=== PATIENT | male | born 1950 | race Asian ===

== ENCOUNTER 2020-10-01 08:49 | Outpatient (REF) | payer SELFPAY | END 2020-10-01 08:50 | disposition home or self-care (01) | LOC: HO.SCI 08:49 | PROVIDERS: Visit Provider Psychiatry & Neurology Neurology | DX: Z13.89 Encounter for screening for other disorder (principal) ==

== ENCOUNTER → 2020-10-02 15:11 | Outpatient (REF) | payer SELFPAY ==
--- NOTE | 2020-10-02 15:16 | HM_ITS ---
Basic underlying rhythm is sinus rhythm with average heart rate of 69 beats per minute. No significant sinus pauses noted. There frequent 2:1 AV block with no change in QRS morphology. It is not clearly preceded by any fall more of Wenckebach phenomenon. Unclear whether this represents type 1 or type 2 second-degree AV block. There were no symptoms reported at that time. Most of these episodes happen between 8 and10 pm. No other arrhythmias noted. No patient reported symptoms MTDD
== END ==
LOC: HO.CARD 15:11
PROVIDERS: Visit Provider Psychiatry & Neurology Neurology
DX: R00.1 Bradycardia, unspecified (principal); R42 Dizziness and giddiness
CPT/HCPCS: 93225; 93242

== ENCOUNTER → 2020-12-04 10:59 | Outpatient (BNVA) | payer SELFPAY | PROVIDERS: PCP Psychiatry & Neurology Neurology; Visit Provider Internal Medicine Cardiovascular Disease | DX: I44.1 Atrioventricular block, second degree (principal); I10 Essential (primary) hypertension | CPT/HCPCS: 99202 ==

== ENCOUNTER → 2020-12-17 08:07 | Outpatient (REF) | payer MEDICARE, SELFPAY ==
--- NOTE | 2020-12-17 08:14 | CA_ITS ---
Acquisition Time: 2020-12-17 08:15:29 Total Exercise Time: 00:01:07 Test Indications: Abnormal ECG Medications: Protocol: LUIS Max HR: 048 BPM 32% of Pred: 148 BPM Max BP: 180/070 mmHG Max Work Load: 2.9 METS Exercise stress test with exercise 1 min 7 sec of Luis protocol, with mild sob, mild dizziness, no chest discomfort, with asymptomatic 2:1 heart block pulse 30s at baseline then becomes symptomatic second degree type 2 with 3:1 conduction with walking rate up to 44, with normotensive BP once sitting back in chair, with nondiagnostic EKG for ischemia. IV access in place during test. EKGs reviewed with Dr Sultana. Will send to ED for admission, evaluation and plan for PPM placement. Pt fully informed of plan and agreeable to proceed. Son present. Transported to ED with RN and Tech, via stretcher, with portable monitor in use. Referred By: Amadou Sultana Overread By: NATA SARABIA
== END ==
LOC: HO.CARD 08:07
PROVIDERS: PCP Internal Medicine; Visit Provider Internal Medicine Cardiovascular Disease
DX: Z13.89 Encounter for screening for other disorder (principal)
CPT/HCPCS: 93017

== ENCOUNTER 2020-12-17 09:59 | Inpatient (IN) | payer MEDICARE, SELFPAY ==
[2020-12-17] VITALS (12 sets, daily range): BP systolic 128–166; BP diastolic 50–80; PULSE 36–73; RESP 12–23; TEMP 36.6–36.8; O2SAT 95–100; BMI 24.6; BMI 21.5
--- NOTE | ~2020-12-17 | XR_ITS ---
EXAMINATION: XR CHEST CLINICAL INFORMATION: Shortness of breath. Rule out pneumonia. COMPARISON: None TECHNIQUE: Frontal view of the chest was obtained. FINDINGS: The cardiac and mediastinal contours are normal. The lungs are clear. There is no pleural effusion or pneumothorax. There are degenerative changes of the spine. XR/XR chest 1V IMPRESSION: No evidence for acute disease in the chest.
--- NOTE | ~2020-12-17 | XR_ITS ---
EXAMINATION: XR CHEST CLINICAL INFORMATION: New pacemaker COMPARISON: Chest radiograph earlier this morning TECHNIQUE: Frontal view of the chest was obtained. FINDINGS: Since the prior exam, a left chest wall subclavian pacemaker has been placed with one lead in the right atria and the other in the right ventricle. No pneumothorax is seen. The heart and pulmonary vessels appear normal. XR/XR chest 1V IMPRESSION: Uneventful placement of left sided bipolar pacemaker without complication.
--- NOTE | ~2020-12-17 | FL_ITS ---
EXAMINATION: XR FL GUIDANCE IN OR WITH IMAGES CLINICAL INFORMATION: Pacemaker placement. COMPARISON: None TECHNIQUE: Fluoroscopy performed by Dr. Betina Alas. Fluoroscopy Time: 410.37 seconds. DAP: 73.49 mGy. Images: 290. FINDINGS: Fluoroscopic guidance provided. Imaging shows injection of contrast with opacification of the cephalic and axillary veins. There is poor opacification of the subclavian vein. No imaging demonstrates a pacemaker. FL/FL guidance in OR IMPRESSION: Fluoroscopy and imaging provided during procedure.
--- NOTE | ~2020-12-17 | XR_ITS ---
EXAMINATION: XR CHEST CLINICAL INFORMATION: Follow-up pacemaker. COMPARISON: Chest radiograph done on 12/17/2020. TECHNIQUE: Frontal view of the chest was obtained. FINDINGS: Dual lead left subclavian left pectoral pacemaker is identified with intact hardware. The tip of the leads are projecting in the region of the right ventricle and right atrium. No significant change since prior study. No evidence of any left-sided pneumothorax. Both lung hu are clear. The cardiac mediastinal silhouette is within normal limit. Overall, no significant change. XR/XR chest 1V IMPRESSION: Stable radiographic appearance of the left subclavian/left pectoral dual-lead pacemaker device.
--- NOTE | 2020-12-17 10:22 | ECG_ITS ---
Test Reason : Dyspnea, bradycardia Blood Pressure : / mmHG Vent. Rate : 037 BPM Atrial Rate : 037 BPM P-R Int : 206 ms QRS Dur : 128 ms QT Int : 512 ms P-R-T Axes : 070 -27 055 degrees QTc Int : 401 ms Junctional bradycardia with A-V dissociation AV Block Right bundle branch block Abnormal ECG No previous ECGs available Clinical Correlation Advised Referred By: Luis Carlos Allan Electronically Signed By:DIOR WORKMAN MD
--- NOTE | 2020-12-17 10:24 | ED_ITS ---
HPI - SOB/Dyspnea General Chief Complaint: Arrhythmia/Palpitations Stated Complaint: Heart Block Time Seen by Provider: 12/17/20 10:02 Source: patient and family (Son, Fatuma) Mode of arrival: ambulatory Limitations: no limitations History of Present Illness HPI Narrative: 70-year-old male who was getting a exercise treadmill test and was found to be bradycardic and dyspneic therefore he was referred to the [facility] department for evaluation. The patient was evaluated by our mount loader, Dr. Sultana on 12/04/2020 for intermittent second-degree AV block noted on a Holter monitor. The patient was asymptomatic at that time and the patient had notice that his pulse was low on his oxygen saturation monitor. The patient reported that his systolic blood pressures ranging from 140-170. After this visit, Dr Sultana schedule the patient for an echocardiogram and stress test that was done today. The patient states however that over the past 3 days he has noticed shortness of breath especially with exertion lightheadedness and dizziness with exertion as well. He states that walking up stairs made him very lightheaded he felt as if he was going to pass out. He also states that he noted a decrease in his heart rate over the past 3 days. He states that his heart rate which was 50-60 beats per minute were now l lower ranging from 35-37 beats per minute. He denied any chest pain, neck pain, arm pain or back pain associated with exertion. The patient had a stress test today and apparently his heart rate would not go above 50, after minimal exertion he did feel short of breath and lightheaded, t herefore he was sent to emergency department for evaluation Related Data Home Medications Medication Instructions Recorded Confirmed No Known Home Meds 12/04/20 12/04/20 Allergies Allergy/AdvReac Type Severity Reaction Status Date / Time No Known Allergies Allergy Verified 12/04/20 11:12 Review of Systems Review of Systems: Yes all other systems are reviewed and are negative PMFSH Past Medical History Medical History HTN (hypertension) Second degree AV block Surgical History Hx of eye surgery Hx of prostatectomy Family History Family History Father No problems noted. Mother Diabetes Social History Social History Patient Tobacco Use Status: Never used Tobacco Use of substances other than those prescribed or required for medical reasons: No Advance Directives: No Advance Directives Information Provided: No Physical Exam Vital Signs: Vital Signs: Last Vital Signs Temp 98.2 F 12/17/20 10:01 Pulse 38 L 12/17/20 10:18 Resp 16 12/17/20 10:18 BP 155/54 H 12/17/20 10:18 Pulse Ox 100 12/17/20 10:18 Body Mass Index 21.5 Const: Other: Very pleasant and cooperative male patient, he does not appear to be in distress, he answers all questions appropriately. HENMT: Head: Yes normal to inspection, Yes normocephalic and Yes atraumatic Ears: external ears normal General nose exam: Normal external nose present Face and sinus: Yes normal facial exam Mouth: Normal oral and palatal mucosa present Throat: Yes posterior oropharynx normal Eyes: General: appearance normal, both eyes and all related structures Pupils: Equal, round and reactive pupils present Neck: Neck: Yes normal visual inspection, Yes no lymphadenopathy, Yes trachea midline and Yes supple Chest: Chest palpation & inspection: normal inspection of the chest and normal palpation of entire chest wall Resp: Effort & Inspection: normal respiratory effort and able to speak in complete sentences Auscultation: clear to auscultation bilaterally Cardio: Rate: bradycardic Rhythm: regular rhythm Heart sounds: S1 normal heart sound present, S2 normal heart sound present and no murmurs GI: Inspection: Yes normal to inspection Palpation (GI): Soft to palpation, nontender and no guarding Auscultation: normal bowel sounds : General: Yes no CVA tenderness Back/Spine/Pelvis: Back: no CVA tenderness Skin: General skin exam: no rashes or lesions noted Neuro: Cranial nerves: Yes CN's II-XII intact bilaterally and Yes Equal, round and reactive pupils present Cognition (Neuro): normal cognition Motor exam (neuro): 5/5 motor strength present throughout Extrem: General: Yes normal to inspection Psych: Appearance: grossly normal Speech and movement: Normal speech and movement present Affect: normal affect Attitude: cooperative Thought process: Normal thought process present Thought content: Normal thought content present Course Course Course Narrative: 70-year-old male with a history of hypertension who was recently diagnosed with intermittent first-degree AV block who over the past 3 days has developed dyspnea on exertion, lightheadedness and dizziness with exertion without any chest pain, neck pain, jaw pain or back pain. He had an exercise treadmill test today and with minimal exertion he developed dyspnea and was not able to get his heart rate above 50 therefore he is referred to the emergency department. Patient denied experiencing chest pain, neck pain jaw pain or back pain during the last 3 days or during the exercise treadmill test. Here in the emergency department the patient has no complaints. Patient was found to be bradycardic with a pulse of 37. His 12 EKG revealed a second-degree AV block with 2-1 conduction and bradycardia with a rate of 37, MD interval of 206 milliseconds, prolonged QRS of 118 milliseconds with a right bundle karen block as well. The patient was placed on a cardiac catheterization technician. I did order CBC, CMP, TSH with reflex T4, troponin BNP, PT/INR, PTT and COVID-19 test. I will also get a one view chest x-ray to rule out CHF or pneumonia as the cause of his dyspnea. 1101: The patient was evaluated by our intensive/endoscopy tech, Dr. Alas did a bedside echocardiogram on the patient. Dr. Alas plans on taking the patient to the operating room to place a pacemaker today at 1:00 p.m. 1216: Laboratory evaluation: High sensitivity troponin I was detectable at 3.8 but not elevated. TSH was normal. BNP was slightly elevated 172. Chest x-ray was unremarkable. MDM - SOB/Dyspnea Lab Data Result diagrams: 12/17/20 10:34 12/17/20 10:34 Labs: Lab Results 12/17/20 12/17/20 12/17/20 Range/Units 10:34 10:34 10:34 WBC 11.8 H (4.8-10.8) X10*3/uL RBC 4.86 (4.60-5.80) X10*6/uL Hgb 14.4 (14.0-18.0) g/dl Hct 43.3 (42.0-52.0) % MCV 89.1 (80.0-98.0) fL MCH 29.6 (27.0-33.0) pg MCHC 33.3 (31.0-36.0) g/dl RDW 12.3 (11.0-16.0) % Plt Count 272 (160-400) X10*3/uL MPV 9.9 (9.4-12.4) fL Immature Gran % (Auto) 0.3 (0.0-0.4) % Neut % (Auto) 61.1 (45-73) % Lymph % (Auto) 28.3 (20-40) % Norton % (Auto) 7.7 (2-11) % Eos % (Auto) 2.4 (0-4) % Baso % (Auto) 0.2 (0-2) % Lymph # (Auto) 3.3 (1.2-4.9) X10*3/uL Norton # (Auto) 0.9 (0.1-1.2) X10*3/uL Eos # (Auto) 0.3 (0.0-0.4) X10*3/uL Baso # (Auto) 0.0 (0.0-0.2) X10*3/uL Abs Immat Gran (auto) 0.04 H (0.00-0.03) X10*3/uL Absolute Neuts (auto) 7.21 (2.0-8.3) x10*3/uL Absolute Nucleated RBC 0.000 (0.0-0.012) X10*3/uL Nucleated RBC % (auto) 0.0 (0.0-0.2) /100WBC PT 12.1 (9.9-13.0) SEC INR 1.1 (0.9-1.1) APTT 36.7 (24.1-38.0) SEC Sodium 138 (135-145) mmol/L Potassium 4.9 (3.3-5.1) mmol/L Chloride 106 (96-108) mmol/L Carbon Dioxide 26 (22-29) mmol/L Anion Gap 11 L (12-20) BUN 15 (9-16) mg/dL Creatinine 0.88 (0.5-1.4) mg/dL Estim Creat Clear Calc 73.0 Estimated GFR > 60 Random Glucose 95 (60-115) mg/dL Calcium 9.1 (8.4-10.2) mg/dL Total Bilirubin 1.0 (0.0-1.0) mg/dL AST 24 (5-37) U/L ALT 27 (0-40) U/L Alkaline Phosphatase 73 (39-117) U/L Troponin I High Sens (<3.5-35.0) ng/L B-Natriuretic Peptide (<100) pg/mL Total Protein 6.4 L (6.5-8.0) g/dL Albumin 3.9 (3.5-5.0) g/dL TSH 3.09 (0.32-4.0) uIU/mL COVID-19 (DEMETRIS) (Negative) COVID-19 Clin Com 12/17/20 12/17/20 Range/Units 10:34 10:34 WBC (4.8-10.8) X10*3/uL RBC (4.60-5.80) X10*6/uL Hgb (14.0-18.0) g/dl Hct (42.0-52.0) % MCV (80.0-98.0) fL MCH (27.0-33.0) pg MCHC (31.0-36.0) g/dl RDW (11.0-16.0) % Plt Count (160-400) X10*3/uL MPV (9.4-12.4) fL Immature Gran % (Auto) (0.0-0.4) % Neut % (Auto) (45-73) % Lymph % (Auto) (20-40) % Norton % (Auto) (2-11) % Eos % (Auto) (0-4) % Baso % (Auto) (0-2) % Lymph # (Auto) (1.2-4.9) X10*3/uL Norton # (Auto) (0.1-1.2) X10*3/uL Eos # (Auto) (0.0-0.4) X10*3/uL Baso # (Auto) (0.0-0.2) X10*3/uL Abs Immat Gran (auto) (0.00-0.03) X10*3/uL Absolute Neuts (auto) (2.0-8.3) x10*3/uL Absolute Nucleated RBC (0.0-0.012) X10*3/uL Nucleated RBC % (auto) (0.0-0.2) /100WBC PT (9.9-13.0) SEC INR (0.9-1.1) APTT (24.1-38.0) SEC Sodium (135-145) mmol/L Potassium (3.3-5.1) mmol/L Chloride (96-108) mmol/L Carbon Dioxide (22-29) mmol/L Anion Gap (12-20) BUN (9-16) mg/dL Creatinine (0.5-1.4) mg/dL Estim Creat Clear Calc Estimated GFR Random Glucose (60-115) mg/dL Calcium (8.4-10.2) mg/dL Total Bilirubin (0.0-1.0) mg/dL AST (5-37) U/L ALT (0-40) U/L Alkaline Phosphatase (39-117) U/L Troponin I High Sens 3.8 (<3.5-35.0) ng/L B-Natriuretic Peptide 172 H (<100) pg/mL Total Protein (6.5-8.0) g/dL Albumin (3.5-5.0) g/dL TSH (0.32-4.0) uIU/mL COVID-19 (DEMETRIS) Negative (Negative) COVID-19 Clin Com See Note ECG Data Interpretation: 1037: Second-degree AV block to 2-1 conduction with bradycardia with a rate of 37, prolonged MD interval of 206, prolonged QRS duration of 128 milliseconds, normal QTC of 401 milliseconds, no ST segment elevation, no ST segment depression, no PACs, no PVCs, right bundle-branch block. Critical Care Time Critical Care Time Critical Care Time: Yes Total Critical Care Time: 35 Attestation: Critical Care: The patient was critically ill with a high probability of imminent or life threatening deterioration. I spent greater than 30 minutes of discontinuous time evaluating the patient,delivering critical care at the bedside, discussing and evaluating pertinent data with consultants. Critical care time does not include time spent performing separately billable p rocedures or teaching. Total time spent performing critical care was 35 minutes. Discharge Plan Discharge Clinical Impression: Second degree AV block, Dyspnea on exertion Patient Disposition: Admitted As Inpatient
[2020-12-17 10:42] LABS: MANUAL DIFF FLAG NO
[2020-12-17 10:48] LABS: Basophils Percent Auto 0.2 % (0-2); Eosinophils Absolute Auto 0.3 X10*3/uL (0.0-0.4); Eosinophils Percent Auto 2.4 % (0-4); Hematocrit 43.3 % (42.0-52.0); Hemoglobin 14.4 g/dl (14.0-18.0); Imm Gran Abs Auto 0.04 X10*3/uL (0.00-0.03); Imm Gran Pct Auto 0.3 % (0.0-0.4); Lymphocytes Absolute Auto 3.3 X10*3/uL (1.2-4.9); Lymphocytes Percent Auto 28.3 % (20-40); Mean Corpuscular HGB Conc 33.3 g/dl (31.0-36.0); Mean Corpuscular Hemoglobin 29.6 pg (27.0-33.0); Mean Corpuscular Volume 89.1 fL (80.0-98.0); Mean Platelet Volume 9.9 fL (9.4-12.4); Monocytes Absolute Auto 0.9 X10*3/uL (0.1-1.2); Monocytes Percent Auto 7.7 % (2-11); Neutrophils Absolute Auto 7.21 x10*3/uL (2.0-8.3); Neutrophils Percent Auto 61.1 % (45-73); Platelet Count 272 X10*3/uL (160-400); Red Blood Count 4.86 X10*6/uL (4.60-5.80); Red Cell Distribution Width 12.3 % (11.0-16.0); White Blood Count 11.8 X10*3/uL (4.8-10.8)
[2020-12-17 11:01] LABS: INTERNATIONAL NORM RATIO 1.1 (0.9-1.1); Prothrombin Time 12.1 SEC (9.9-13.0)
[2020-12-17 11:04] LABS: Partial Thromboplastin Time 36.7 SEC (24.1-38.0)
[2020-12-17 11:06] LABS: COVID-19 Test Negative (Negative)
[2020-12-17 11:08] LABS: Alanine Aminotransferase 27 U/L (0-40); Albumin Level 3.9 g/dL (3.5-5.0); Alkaline Phosphatase 73 U/L (39-117); Anion Gap 11 (12-20); Aspartate Amino Transferase 24 U/L (5-37); B Type Natriuretic Peptide 172 pg/mL (<100); Blood Urea Nitrogen 15 mg/dL (9-16); Calcium 9.1 mg/dL (8.4-10.2); Carbon Dioxide 26 mmol/L (22-29); Chloride 106 mmol/L (96-108); Estimated Glomerular Filt Rate > 60; Glucose Random 95 mg/dL (60-115); Potassium 4.9 mmol/L (3.3-5.1); Sodium 138 mmol/L (135-145); Total Protein 6.4 g/dL (6.5-8.0); Troponin-I High Sensitivity 3.8 ng/L (<3.5-35.0)
[2020-12-17 11:25] LABS: TSH reflex Free T4 3.09 uIU/mL (0.32-4.0)
--- NOTE | 2020-12-17 12:01 | PM.CCHP ---
History of Present Illness Date of Service: 12/17/20 Attending physician on admission: Amadou Sultana Chief Complaint: Weakness and shortness of breath 70-year-old male of with no underlying disease or medication at home doing well until approximately 2 weeks ago and then he started to notice exertional weakness fatigability shortness of breath and almost to the point of near syncope and he was noted to have heart rates that progressively dropped and for 1 week have been approximately 30-32 and today on the treadmill he was noted to be in sinus rhythm 1st degree AV block with 2-1 AV block with fixed conduction and underlying right bundle branch block and left anterior hemiblock so 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 with significant symptomatic bradycardia On the treadmill his sinus rate increased but of course his degree of AV block increased to 3-1 and 4-1 and his ventricular response rate remained at approximately 30 Bedside echocardiogram documented perfectly normal anatomy with globally normal left and right ventricular systolic wall motion and no primary valve or pericardial disease and normal inferior vena caval diameter with normal inspiratory response so he is apparently euvolemic Review of Systems Review of Systems: Yes all other systems are reviewed and are negative [facility] Past Medical History Medical History HTN (hypertension) Second degree AV block Family History Family History Father No problems noted. Mother Diabetes Surgical History Surgical History Hx of eye surgery Hx of prostatectomy Social History Social History Patient Tobacco Use Status: Never used Tobacco Second Hand Smoke Exposure: No Meds Allergies Allergy/AdvReac Type Severity Reaction Status Date / Time No Known Allergies Allergy Verified 12/04/20 11:12 Active Medications: Current Medications Cefazolin Sodium/Dextrose (Ancef) 2 gm in 50 mls @ 100 mls/hr IV PREOP ONE Stop: 12/17/20 12:29 Home Medications Medication Instructions Recorded Confirmed Last Taken Type No Known Home Meds 12/04/20 12/04/20 Unknown History Physical Exam Vital Signs: Vital Signs: Last Vital Signs Temp 98.2 F 12/17/20 10:01 Pulse 38 L 11/02/21 10:18 Resp 16 12/17/20 10:18 BP 155/54 H 12/17/20 10:18 Pulse Ox 100 12/17/20 10:18 Body Mass Index 21.5 Awake alert and oriented x3 and nonfocal neurologically Bedside echo shows normal inferior vena caval diameter with normal inspiratory collapse and normal cardiac anatomy with normal systolic function of both right and left ventricles and no primary valve or pericardial disease Chest was clear with no adventitious sounds Skin is intact Results Labs CBC and Chem 7: 12/17/20 10:34 12/17/20 10:34 Labs: Laboratory Results - last 24 hr 12/17/20 12/17/20 12/17/20 10:34 10:34 10:34 MCV 89.1 MCH 29.6 MCHC 33.3 RDW 12.3 Plt Count 272 MPV 9.9 Immature Gran % (Auto) 0.3 Neut % (Auto) 61.1 Lymph % (Auto) 28.3 [place] % (Auto) 7.7 Eos % (Auto) 2.4 Baso % (Auto) 0.2 Lymph # (Auto) 3.3 [place] # (Auto) 0.9 Eos # (Auto) 0.3 Baso # (Auto) 0.0 Abs Immat Gran (auto) 0.04 H Absolute Neuts (auto) 7.21 Absolute Nucleated RBC 0.000 Nucleated RBC % (auto) 0.0 PT 12.1 INR 1.1 APTT 36.7 Anion Gap 11 L Estim Creat Clear Calc 73.0 Estimated GFR > 60 Random Glucose 95 Calcium 9.1 Total Bilirubin 1.0 AST 24 ALT 27 Alkaline Phosphatase 73 Troponin I High Sens B-Natriuretic Peptide Total Protein 6.4 L Albumin 3.9 TSH 3.09 COVID-19 (DEMETRIS) COVID-19 Clin Com 12/17/20 12/17/20 10:34 10:34 MCV MCH MCHC RDW Plt Count MPV Immature Gran % (Auto) Neut % (Auto) Lymph % (Auto) [place] % (Auto) Eos % (Auto) Baso % (Auto) Lymph # (Auto) [place] # (Auto) Eos # (Auto) Baso # (Auto) Abs Immat Gran (auto) Absolute Neuts (auto) Absolute Nucleated RBC Nucleated RBC % (auto) PT INR APTT Anion Gap Estim Creat Clear Calc Estimated GFR Random Glucose Calcium Total Bilirubin AST ALT Alkaline Phosphatase Troponin I High Sens 3.8 B-Natriuretic Peptide 172 H Total Protein Albumin TSH COVID-19 (DEMETRIS) Negative COVID-19 Clin Com See Note Imaging Radiologist's Impressions: Impressions Chest X-Ray 12/17/20 10:23 IMPRESSION: No evidence for acute disease in the chest. Assessment and Plan (1) Dyspnea on exertion: Status: Acute (2) HTN (hypertension): Status: Acute (3) Second degree AV block: Status: Acute (4) Symptomatic bradycardia: Status: Acute (5) Bifascicular bundle branch block: Status: Acute
--- NOTE | 2020-12-17 12:03 | P.CONCA_ITS ---
History of Present Illness History of Present Illness Date of Service: 12/17/20 Requesting physician: Luis Carlos Allan Chief complaint: Symp bradycardia High grade Trifascicular Block Narrative: Del was here for treadmill stress test for 2 is to 1 av block. However the last week he has noted persistent bradycardia and symptoms of lightheadedness and shortness of breath with exertion. He has no orthopnea, PND. No syncopal episodes. He came in to the stress lab and was noted to be in persistent 2 is to 1 av block with right bundle-branch block. He was then put on the treadmill and had worsening of his AV block consistent with infranodal AV block. He was therefore referred to the emergency room for admission and placement of dual-chamber pacemaker due to unstable AV block condition. We discussed about this situation. His blood pressure is stable. He is not having any other symptoms at this point time. However is very skeptical about needing to undergo pacemaker placement. Dr. Rivas has been consulted and agrees to proceed with dual-chamber pacemaker soon. Review of Systems Constitutional: Constitutional: Reports no additional constitutional complaints Eyes: Eyes: Reports no additional eye complaints Cardiovascular: Cardiovascular: Denies chest pain, Denies leg edema, Reports lightheadedness, Denies Loss of Consciousness, Denies palpitations, Reports dyspnea on exertion, Denies orthopnea and Reports slow heart rate Respiratory: Respiratory: Reports no additional respiratory complaints and Reports dyspnea on exertion Gastrointestinal: Gastrointestinal: Reports no additional gastrointestinal complaints Genitourinary: Genitourinary: Reports no additional male genitourinary complaints Musculoskeletal: Musculoskeletal: Reports no additional musculoskeletal complaints Integumentary/Breasts: Skin/Breast: Reports system reviewed and no additional complaints, except as docu Neurologic: Reports system reviewed and no additional complaints, except as documented Psychiatric: Psychiatric: Reports no additional psychiatric complaints Endocrine: Endocrine: Reports no additional endocrine complaints and Denies p alpitations PMFSH Past Medical History Medical History HTN (hypertension) Second degree AV block Family History Family History Father No problems noted. Mother Diabetes Surgical History Surgical History Hx of eye surgery Hx of prostatectomy Social History Social History Patient Tobacco Use Status: Never used Tobacco Use of substances other than those prescribed or required for medical reasons: No Advance Directives: No Advance Directives Information Provided: No Meds Allergies Allergy/AdvReac Type Severity Reaction Status Date / Time No Known Allergies Allergy Verified 12/04/20 11:12 Active Medications: Current Medications Cefazolin Sodium/Dextrose (Ancef) 2 gm in 50 mls @ 100 mls/hr IV PREOP ONE Stop: 12/17/20 12:29 Home Medications Medication Instructions Recorded Confirmed Last Taken Type No Known Home Meds 12/04/20 12/04/20 Unknown History Physical Exam Vital Signs: Vital Signs: Last Vital Signs Temp 98.2 F 12/17/20 10:01 Pulse 38 L 12/17/20 10:18 Resp 16 12/17/20 10:18 BP 155/54 H 12/17/20 10:18 Pulse Ox 100 12/17/20 10:18 Body Mass Index 21.5 Const: General: cooperative, comfortable, no acute distress, alert and awake Nutritional Appearance: thin Orientation/consciousness: patient oriented x3 Limitations: no limitations HENMT: Head: Yes normocephalic and Yes atraumatic Neck: Neck: Yes trachea midline, Yes supple and Yes no JVD Resp: Effort & Inspection: normal respiratory effort Auscultation: clear to auscultation bilaterally Cardio: Jugular venous distension: no JVD Palpation: normal PMI Rate: regular rate and bradycardic Rhythm: regular rhythm Heart sounds: S1 normal heart sound present, S2 normal heart sound present, no click, no gallops, no murmurs and no rubs GI: Auscultation: normal bowel sounds Skin: General skin exam: no rashes or lesions noted Neuro: General: patient oriented x3 and no focal motor deficits Extrem: General: Yes no clubbing, cyanosis or edema Results Labs and Meds Result diagrams: 12/17/20 10:34 12/17/20 10:34 Lab results: Laboratory Results - last 24 hr 12/17/20 12/17/20 12/17/20 10:34 10:34 10:34 WBC 11.8 H RBC 4.86 Hgb 14.4 Hct 43.3 MCV 89.1 MCH 29.6 MCHC 33.3 RDW 12.3 Plt Count 272 MPV 9.9 Immature Gran % (Auto) 0.3 Neut % (Auto) 61.1 Lymph % (Auto) 28.3 Bennett % (Auto) 7.7 Eos % (Auto) 2.4 Baso % (Auto) 0.2 Lymph # (Auto) 3.3 Bennett # (Auto) 0.9 Eos # (Auto) 0.3 Baso # (Auto) 0.0 Abs Immat Gran (auto) 0.04 H Absolute Neuts (auto) 7.21 Absolute Nucleated RBC 0.000 Nucleated RBC % (auto) 0.0 PT 12.1 INR 1.1 APTT 36.7 Sodium 138 Potassium 4.9 Chloride 106 Carbon Dioxide 26 Anion Gap 11 L BUN 15 Creatinine 0.88 Estim Creat Clear Calc 73.0 Estimated GFR > 60 Random Glucose 95 Calcium 9.1 Total Bilirubin 1.0 AST 24 ALT 27 Alkaline Phosphatase 73 Troponin I High Sens B-Natriuretic Peptide Total Protein 6.4 L Albumin 3.9 TSH 3.09 COVID-19 (DEMETRIS) COVID-19 [place]rin[place] Com 12/17/20 12/17/20 10:34 10:34 WBC RBC Hgb Hct MCV MCH MCHC RDW Plt Count MPV Immature Gran % (Auto) Neut % (Auto) Lymph % (Auto) Bennett % (Auto) Eos % (Auto) Baso % (Auto) Lymph # (Auto) Bennett # (Auto) Eos # (Auto) Baso # (Auto) Abs Immat Gran (auto) Absolute Neuts (auto) Absolute Nucleated RBC Nucleated RBC % (auto) PT INR APTT Sodium Potassium Chloride Carbon Dioxide Anion Gap BUN Creatinine Estim Creat Clear Calc Estimated GFR Random Glucose Calcium Total Bilirubin AST ALT Alkaline Phosphatase Troponin I High Sens 3.8 B-Natriuretic Peptide 172 H Total Protein Albumin TSH COVID-19 (DEMETRIS) Negative COVID-19 Clin Com See Note Imaging Radiologist's impression: Impressions Chest X-Ray 12/17/20 10:23 IMPRESSION: No evidence for acute disease in the chest. Assessment and Plan (1) Second degree AV block: Status: Acute Infranodal second-degree AV block, unstable situation with worsening block with exercise. This needs to be treated with a dual-chamber pacemaker. This was discussed with patient as well as patient's son in detail. Risks, benefits, alternatives and 2nd opinion to procedure for pacemaker placement was discussed with him. He is still hesitant but understands and is agreeable. Schedule for pacemaker placement today and if everything goes well, plan for discharge tomorrow. Unknown cause of his AV aoksua block. This was discussed with him. Will need further workup as we progressed. He will need an echocardiogram as well as ischemic evaluation and if these are negative to pursue with cardiac MRI to evaluate for infiltrative heart disease. Will follow up with him. Procedures Date of Service Date of Service: 12/17/20
--- NOTE | 2020-12-17 13:39 | P.CONAN_ITS ---
HPI - Anesthesia Eval Consult details Narrative: 70 yo male patient for pacemaker insertion PMFSH Active Problems Active Problems: All Active Problems (Updated 12/17/20 @ 11:03 by Luis Carlos Allan MD) Dyspnea on exertion (Acute) HTN (hypertension) (Acute) Second degree AV block (Acute) SOB, dizziness Past Medical History Medical History HTN (hypertension) Second degree AV block Family History Family History Father No problems noted. Mother Diabetes Family history of problems with anesthesia: No Surgical History Surgical History Hx of eye surgery Hx of prostatectomy History of Problems with Anesthesia: No Social History Social History Patient Tobacco Use Status: Never used Tobacco Second Hand Smoke Exposure: No Meds Allergies Allergy/AdvReac Type Severity Reaction Status Date / Time No Known Allergies Allergy Verified 12/04/20 11:12 Active Medications: Current Medications Lactated Ringer's (Lr) 1,000 mls @ 50 mls/hr IVCONT .Q20H [facility] Home Medications Medication Instructions Recorded Confirmed Last Taken Type No Known Home Meds 12/04/20 12/04/20 Unknown History Exam Exam Date and Time: December 17, 2020 1339 Height,Weight and Vital Signs: Height 5 ft 10 in Weight 68.039 kg Last Vital Signs Temp 98.2 F 12/17/20 12:20 Pulse 36 L 12/17/20 12:20 Resp 19 12/17/20 12:20 BP 155/53 H 12/17/20 12:20 Pulse Ox 99 12/17/20 12:20 Pertinent Lab Results Pertinent Lab Results: Laboratory Tests 12/17/20 12/17/20 12/17/20 10:34 10:34 10:34 WBC 11.8 H RBC 4.86 Hgb 14.4 Hct 43.3 MCV 89.1 MCH 29.6 MCHC 33.3 RDW 12.3 Plt Count 272 MPV 9.9 Immature Gran % (Auto) 0.3 Neut % (Auto) 61.1 Lymph % (Auto) 28.3 [place] % (Auto) 7.7 Eos % (Auto) 2.4 Baso % (Auto) 0.2 Lymph # (Auto) 3.3 [place] # (Auto) 0.9 Eos # (Auto) 0.3 Baso # (Auto) 0.0 Abs Immat Gran (auto) 0.04 H Absolute Neuts (auto) 7.21 Absolute Nucleated RBC 0.000 Nucleated RBC % (auto) 0.0 PT 12.1 INR 1.1 APTT 36.7 Sodium 138 Potassium 4.9 Chloride 106 Carbon Dioxide 26 Anion Gap 11 L BUN 15 Creatinine 0.88 Estim Creat Clear Calc 73.0 Estimated GFR > 60 Random Glucose 95 Calcium 9.1 Total Bilirubin 1.0 AST 24 ALT 27 Alkaline Phosphatase 73 Troponin I High Sens B-Natriuretic Peptide Total Protein 6.4 L Albumin 3.9 TSH 3.09 COVID-19 ([facility]) COVID-19 [employer] 12/17/20 12/17/20 10:34 10:34 WBC RBC Hgb Hct MCV MCH MCHC RDW Plt Count MPV Immature Gran % (Auto) Neut % (Auto) Lymph % (Auto) [place] % (Auto) Eos % (Auto) Baso % (Auto) Lymph # (Auto) [place] # (Auto) Eos # (Auto) Baso # (Auto) Abs Immat Gran (auto) Absolute Neuts (auto) Absolute Nucleated RBC Nucleated RBC % (auto) PT INR APTT Sodium Potassium Chloride Carbon Dioxide Anion Gap BUN Creatinine Estim Creat Clear Calc Estimated GFR Random Glucose Calcium Total Bilirubin AST ALT Alkaline Phosphatase Troponin I High Sens 3.8 B-Natriuretic Peptide 172 H Total Protein Albumin TSH COVID-19 ([facility]) Negative COVID-19 Clin Com See Note Airway Mallampati Class: II TM Dist: >3cm Neck ROM: Full (A little stiffness but no UE weakness or numbness) Loose/Missing/Broken Teeth: No Heart: RRR ?murmur Lungs: CTAB Assessment and Plan Assessment Anesthesia Assessment: Anesthesia Plan Discussed and Chart Reviewed Final Anesthetic Review Family History of Problems with Anesthesia: No History of Problems with Anesthesia: No NPO: Yes ASA Class: III and Emergency Final Preanesthetic Review: No Changes in Pt Med Stat, Meds/Allgs Chart Reviewed, Consent Obtained/Reviewed and Anes Risks/Benef Reviewed Patient Risk: Intermediate Procedure Risk: Intermediate Assessment/Block/Sedation in SS: Assess/Block/Sedation-SS Anesthetic Plan Anesthetic Plan: GA and MAC: Disposition: Inp. Admit - ICU
[2020-12-17] MEDS: Lactated Ringers 1,000 ML 50 ML IVCONT (13:50)
--- NOTE | 2020-12-17 16:14 | W.PM.OPN ---
Operative Note Operative Note Date of Service: 12/17/20 Narrative: After sterile preparation and draping and under fluoroscopic guidance I 1st performed subclavian venography without complication highlighting the subclavian venous system Then made careful incision and dissection down to the level of the prepectoral fascia partially creating a pocket along the plane of the prepectoral fascia and securing all bleeders and then gained separate entry x2 into the extrathoracic portion of the subclavian venous system passing retrograde with Seldinger technique 2 J-tip guidewires to the right atrium and then 2 6 Montenegrin introducers First I passed an active fixation right ventricular lead to the interventricular septum confirmed in the [place] position on the right ventricular side and screw was deployed it was well tethered with excellent injury current with impedance of 660 Ohms sensing at 7.3 mV and capture threshold 0.5 volts and no diaphragm capture at 10 volts that lead was sewn in tethered to the pectoral muscle in the floor of the pocket I then passed an active fixation right atrial lead to the right atrial appendage again the screw was deployed well tethered with excellent injury current and sensing at 1.8 mV resistance of 550 Ohms captured 0.5 volts that lead was sewn in tethered to the pectoral muscle in the floor of the pocket and I then attached both leads and secured them to the generator they were both well tethered with no change in impedance and pocket was completed along the plane of the prepectoral fascia and leads and generator were placed in the pocket and wound was closed in 3 layers and sterilely dressed Patient was awake removed from the table intact with sinus node sensing and 100% ventricular pacing and capture and x-rays pending
[2020-12-17] MEDS: Acetaminophen 325 MG TABLET 650 MG PO (20:38)
[2020-12-18] VITALS (10 sets, daily range): BP systolic 116–154; BP diastolic 56–80; PULSE 60–66; RESP 17–22; TEMP 36.6–36.7; O2SAT 95–97; BMI 24.3
--- NOTE | 2020-12-18 03:34 | PC.NURSE ---
Assumed care of pt at 1900. Pt is S/P Insertion of Permanent Pacemaker. Rhythm is V paced and occasional AV paced. No complications with sensing or capture. Dsg is D&I left upper chest. Left arm in sling and pt feels comfortable with left arm supported by a pillow while in bed. Bp stable, sys 140-150's, lock[place] 50-60's. Received one dose of tylenol PO with good effect for surgical pain. Afebrile. Pt was hungry and ate 2 sandwiches without complication. OOB with one assist to bedside commode to pass small amount of brown stool. Voiding in urinol. No shortness of breath noted.
[2020-12-18 05:37] LABS: MANUAL DIFF FLAG NO
[2020-12-18 05:43] LABS: Basophils Percent Auto 0.3 % (0-2); Eosinophils Absolute Auto 0.4 X10*3/uL (0.0-0.4); Eosinophils Percent Auto 3.7 % (0-4); Hematocrit 43.2 % (42.0-52.0); Hemoglobin 14.5 g/dl (14.0-18.0); Imm Gran Abs Auto 0.03 X10*3/uL (0.00-0.03); Imm Gran Pct Auto 0.3 % (0.0-0.4); Lymphocytes Absolute Auto 3.2 X10*3/uL (1.2-4.9); Lymphocytes Percent Auto 26.8 % (20-40); Mean Corpuscular HGB Conc 33.6 g/dl (31.0-36.0); Mean Corpuscular Volume 89.4 fL (80.0-98.0); Mean Platelet Volume 9.8 fL (9.4-12.4); Monocytes Absolute Auto 0.9 X10*3/uL (0.1-1.2); Monocytes Percent Auto 7.7 % (2-11); Neutrophils Absolute Auto 7.23 x10*3/uL (2.0-8.3); Neutrophils Percent Auto 61.2 % (45-73); Platelet Count 278 X10*3/uL (160-400); Red Blood Count 4.83 X10*6/uL (4.60-5.80); Red Cell Distribution Width 12.1 % (11.0-16.0); White Blood Count 11.8 X10*3/uL (4.8-10.8)
[2020-12-18 06:13] LABS: Alanine Aminotransferase 18 U/L (0-40); Albumin Level 3.5 g/dL (3.5-5.0); Alkaline Phosphatase 66 U/L (39-117); Anion Gap 13 (12-20); Aspartate Amino Transferase 19 U/L (5-37); Bilirubin Total 0.9 mg/dL (0.0-1.0); Blood Urea Nitrogen 17 mg/dL (9-16); Calcium 8.7 mg/dL (8.4-10.2); Carbon Dioxide 23 mmol/L (22-29); Chloride 106 mmol/L (96-108); Creatinine Clr Calc Pharmacy 76.4; Estimated Glomerular Filt Rate > 60; Glucose Random 90 mg/dL (60-115); Potassium 4.5 mmol/L (3.3-5.1); Sodium 137 mmol/L (135-145); Total Protein 5.6 g/dL (6.5-8.0)
--- NOTE | 2020-12-18 08:15 | P.DS_ITS ---
DS: Providers Provider Date of Service: 12/18/20 Date of admission: 12/17/20 11:56 Date of discharge: 12/18/20 Primary care physician: Ashwin Cannon MD Admitting clinician: Betina Alas Attending physician on admission: Betina Alas Consults: 12/17/20 11:32 Consult to Cardiology Stat Consulting Provider: Amadou Sultana Reason for consultation: Second-degree AV block, dyspnea, bradycardia Has provider been notified: Yes Attending physician on discharge: Betina Alas Discharging clinician: Betina Alas DS: Diagnosis Discharge Diagnosis (1) Dyspnea on exertion: Status: Acute (2) HTN (hypertension): Status: Acute (3) Second degree AV block: Status: Acute (4) Symptomatic bradycardia: Status: Acute (5) Bifascicular bundle branch block: Status: Acute DS: Summary Hospital Course Hospital Course: Presented to cardiology office for stress testing noted to have heart rate of 30 with progressive sense over 2 weeks of exertional dyspnea premature weakness to the point of near syncope and on treadmill a sinus rate increased but ventricular rate remained at 30 and degree of in for akosua block increased 2321 and 421 at times Sent to the emergency room with with ventricular rate of 32-1 AV block with a working sinus mechanism and my bedside echo showed globally normal anatomy of his heart and his EKG showed an underlying bifascicular block with 1st degree AV block and of course second-degree AV block indicating probable trifascicular block Taken to the OR right away and a permanent dual-chamber [place] pacemaker was placed atrial lead in the right atrial appendage and ventricular lead on the interventricular septum with excellent and stable impedances and sensing and capture threshold and wound was sterilely closed in 3 layers Status at Discharge Cognitive/behavioral status at discharge: 100% normal Time Spent with Patient Time attestation: Total time spent providing and/or coordinating discharge services: Discharge coordination time: Greater than 30 minutes Specific discharge activities: No limits except he was instructed not to extremely stretch left arm from the body for 4-6 weeks Quality: Stroke Does the patient have a stroke diagnosis?: No Physical Exam Vital Signs: Vital Signs: Last Vital Signs Temp 97.8 F 12/18/20 08:00 Pulse 61 12/18/20 08:00 Resp 22 H 12/18/20 08:00 BP 154/75 H 12/18/20 08:00 Pulse Ox 97 12/18/20 08:00 Body Mass Index 24.3 Awake/alert/oriented x3/non focal neurologic Cardiac exam with good bilateral carotid upstrokes and no neck vein distension wound looks excellent Abdomen benign no organomegaly Chest clear by chest x-ray and exam Skin intact no peripheral edema DS: Data Data Completed and Pending Completed studies during hospitalization [Text1]: Follow-up chest x-ray and [place] Roland interrogation of device everything excellent and stable All follow-up lab work is excellent Labs on day of discharge: Laboratory Results - last 24 hr 12/17/20 12/17/20 12/17/20 10:34 10:34 10:34 WBC 11.8 H RBC 4.86 Hgb 14.4 Hct 43.3 MCV 89.1 MCH 29.6 MCHC 33.3 RDW 12.3 Plt Count 272 MPV 9.9 Immature Gran % (Auto) 0.3 Neut % (Auto) 61.1 Lymph % (Auto) 28.3 [place] % (Auto) 7.7 Eos % (Auto) 2.4 Baso % (Auto) 0.2 Lymph # (Auto) 3.3 [place] # (Auto) 0.9 Eos # (Auto) 0.3 Baso # (Auto) 0.0 Abs Immat Gran (auto) 0.04 H Absolute Neuts (auto) 7.21 Absolute Nucleated RBC 0.000 Nucleated RBC % (auto) 0.0 PT 12.1 INR 1.1 APTT 36.7 Sodium 138 Potassium 4.9 Chloride 106 Carbon Dioxide 26 Anion Gap 11 L BUN 15 Creatinine 0.88 Estim Creat Clear Calc 73.0 Estimated GFR > 60 Random Glucose 95 Calcium 9.1 Total Bilirubin 1.0 AST 24 ALT 27 Alkaline Phosphatase 73 Troponin I High Sens B-Natriuretic Peptide Total Protein 6.4 L Albumin 3.9 TSH 3.09 COVID-19 ([facility]) COVID-19 Clin Com 12/17/20 12/17/20 12/18/20 10:34 10:34 05:22 WBC 11.8 H RBC 4.83 Hgb 14.5 Hct 43.2 MCV 89.4 MCH 30.0 MCHC 33.6 RDW 12.1 Plt Count 278 MPV 9.8 Immature Gran % (Auto) 0.3 Neut % (Auto) 61.2 Lymph % (Auto) 26.8 [place] % (Auto) 7.7 Eos % (Auto) 3.7 Baso % (Auto) 0.3 Lymph # (Auto) 3.2 [place] # (Auto) 0.9 Eos # (Auto) 0.4 Baso # (Auto) 0.0 Abs Immat Gran (auto) 0.03 Absolute Neuts (auto) 7.23 Absolute Nucleated RBC 0.000 Nucleated RBC % (auto) 0.0 PT INR APTT Sodium Potassium Chloride Carbon Dioxide Anion Gap BUN Creatinine Estim Creat Clear Calc Estimated GFR Random Glucose Calcium Total Bilirubin AST ALT Alkaline Phosphatase Troponin I High Sens 3.8 B-Natriuretic Peptide 172 H Total Protein Albumin TSH COVID-19 ([facility]) Negative COVID-19 [employer] Com See Note 12/18/20 05:22 WBC RBC Hgb Hct MCV MCH MCHC RDW Plt Count MPV Immature Gran % (Auto) Neut % (Auto) Lymph % (Auto) [place] % (Auto) Eos % (Auto) Baso % (Auto) Lymph # (Auto) [place] # (Auto) Eos # (Auto) Baso # (Auto) Abs Immat Gran (auto) Absolute Neuts (auto) Absolute Nucleated RBC Nucleated RBC % (auto) PT INR APTT Sodium 137 Potassium 4.5 Chloride 106 Carbon Dioxide 23 Anion Gap 13 BUN 17 H Creatinine 0.84 Estim Creat Clear Calc 76.4 Estimated GFR > 60 Random Glucose 90 Calcium 8.7 Total Bilirubin 0.9 AST 19 ALT 18 Alkaline Phosphatase 66 Troponin I High Sens B-Natriuretic Peptide Total Protein 5.6 L Albumin 3.5 TSH COVID-19 ([facility]) COVID-19 [employer] Com Discharge Plan Discharge Anticipated Discharge Date/Time: 12/18/20 11:09 Patient Disposition: Home, Self-Care Discharge Diagnosis: Symptomatic bradycardia/high-grade infra akosua block Referrals: Ashwin Cannon MD [Primary Care Provider] - 1 Week Discharge Medications: No Action No Known Home Meds RF: 0 Discharge Orders: Discharge Order (Routine); Ordered 12/18/20 Ordered By: Betina Alas Diet: regular diet Activity on Discharge: As tolerated Stand Alone Forms: Patient Portal Discharge page Care Plan Goals: Explained not to over extend left upper extremity for 4-6 weeks Leave dressing intact shower as normally except head and face washing in the sink to avoid wetting the dressing Health Concerns: No medications required because he was not this rhythmic Plan of Treatment: No medications required and follow-up of patient and device with Dr. Sultana Assessment: Wound is excellent and on chest x-ray wire placement is absolutely stable and unchanged no pneumothorax x-rays clean and all thresholds and impedances of the leads check out perfectly
--- NOTE | 2020-12-18 11:37 | PM.PNCARD ---
Subjective Subjective Date of Service: 12/18/20 <SHANNAN Nava - Last Filed: 12/18/20 11:53> 12/18/20 <Amadou Sultana MD - Last Filed: 12/18/20 13:25> Principal diagnosis: 2nd degree heart block, symptomatic bradycardia, s/p PPM <SHANNAN Nava - Last Filed: 12/18/20 11:53> Interval history: Cardiology follow up for the above. Seen at 0915. Today he reports feeling better since pacemaker placed. His head is more clear and breathing seems easier. Mild discomfort from sight. No dizziness, chest pains, palpitations. Slept well. Daughter present. Tele showing V paced, intermittent A paced rhythm. <SHANNAN Nava - Last Filed: 12/18/20 11:53> Review of Systems Review of Systems as above <SHANNAN Nava - Last Filed: 12/18/20 11:53> Yes all other systems are reviewed and are negative <SHANNAN Nava - Last Filed: 12/18/20 11:53> Physical Exam Vital Signs: Last Vital Signs Temp 97.8 F 12/18/20 08:00 Pulse 65 12/18/20 09:00 Resp 17 12/18/20 09:00 BP 154/75 H 12/18/20 08:00 Pulse Ox 96 12/18/20 09:00 Body Mass Index 24.3 <SHANNAN Nava - Last Filed: 12/18/20 11:53> Const General: cooperative, healthy appearing, no acute distress, alert and awake <SHANNAN Nava - Last Filed: 12/18/20 11:53> Orientation/consciousness: patient oriented x3 <SHANNAN Nava - Last Filed: 12/18/20 11:53> Neck Neck: Yes normal visual inspection and Yes no JVD <SHANNAN Nava - Last Filed: 12/18/20 11:53> Carotids: carotid upstroke abnormal <SHANNAN Nava - Last Filed: 12/18/20 11:53> Chest Other: Pacemaker site left upper chest intact with gauze dressing covered by tegaderm. No staining. No swelling, ecchimosis noted. <[facility]azz[facility] - Last Filed: 12/18/20 11:53> Resp Effort & Inspection: normal respiratory effort, able to speak in complete sentences and not labored <Jazzmine Torres [facility] - Last Filed: 12/18/20 11:53> Auscultation: clear to auscultation bilaterally, no crackles, no rales, no rhonchi and no wheezes <Jazzmine Torres [facility] - Last Filed: 12/18/20 11:53> Cardio Palpation: normal PMI <[facility] - Last Filed: 12/18/20 11:53> Rate: regular rate <[facility] - Last Filed: 12/18/20 11:53> Rhythm: regular rhythm <[facility] - Last Filed: 12/18/20 11:53> Heart sounds: S1 normal heart sound present and S2 normal heart sound present <[facility] - Last Filed: 12/18/20 11:53> GI Inspection: Yes normal to inspection <[facility] - Last Filed: 12/18/20 11:53> Neuro General: patient oriented x3 <Jazzmine Melissa [facility] - Last Filed: 12/18/20 11:53> Extrem General: Yes normal to inspection and No edema <Jazzmine Melissa [facility] - Last Filed: 12/18/20 11:53> Results Labs and Meds Result diagrams: : 12/18/20 05:22 12/18/20 05:22 <Jazzmine Torres [facility] - Last Filed: 12/18/20 11:53> Lab results: Laboratory Results - last 24 hr 12/18/20 12/18/20 05:22 05:22 WBC 11.8 H RBC 4.83 Hgb 14.5 Hct 43.2 MCV 89.4 MCH 30.0 MCHC 33.6 RDW 12.1 Plt Count 278 MPV 9.8 Immature Gran % (Auto) 0.3 Neut % (Auto) 61.2 Lymph % (Auto) 26.8 [place] % (Auto) 7.7 Eos % (Auto) 3.7 Baso % (Auto) 0.3 Lymph # (Auto) 3.2 [place] # (Auto) 0.9 Eos # (Auto) 0.4 Baso # (Auto) 0.0 Abs Immat Gran (auto) 0.03 Absolute Neuts (auto) 7.23 Absolute Nucleated RBC 0.000 Nucleated RBC % (auto) 0.0 Sodium 137 Potassium 4.5 Chloride 106 Carbon Dioxide 23 Anion Gap 13 BUN 17 H Creatinine 0.84 Estim Creat Clear Calc 76.4 Estimated GFR > 60 Random Glucose 90 Calcium 8.7 Total Bilirubin 0.9 AST 19 ALT 18 Alkaline Phosphatase 66 Total Protein 5.6 L Albumin 3.5 <SHANNAN Nava - Last Filed: 12/18/20 11:53> Imaging Radiologist's impression: Impressions Guidance Fluoroscopy 12/17/20 12:49 IMPRESSION: Fluoroscopy and imaging provided during procedure. Chest X-Ray 12/17/20 17:27 IMPRESSION: Uneventful placement of left sided bipolar pacemaker without complication. Chest X-Ray 12/18/20 06:49 IMPRESSION: Stable radiographic appearance of the left subclavian/left pectoral dual-lead pacemaker device. <SHANNAN Nava - Last Filed: 12/18/20 11:53> Progress Note: A&P Assessment and plan (1) Status post placement of cardiac pacemaker: Status: Acute <SHANNAN Nava Last Filed: 12/18/20 11:53> Assessment and Plan: Symptomatic bradycardia with second degree heart block, bifascicular block rate in 30s on admission. Underwent [facility] Roland dual chamber pacemaker placement with Dr Alas yesterday. CXR post device and this am show no pneumo and good lead placement. Tele monitoring showing Intermittent A paced and mostly continual V paced rhythm, rate in 60-70s. 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 Today he reports that head feels more clear and breathing is normal. Pacemaker site covered with dry gauze/ tegaderm dressing. No drainage, redness, swelling noted. Spent 15 min with pt and daughter going over pacemaker site care, restricted activity, remote monitoring, pacemaker function and follow up. Ambulate in rossi to assess for symptoms. If feeling well, He can be discharged from cardiology perspective. We will arrange for follow up in 2 weeks. He will be seeing Dr Alas on 01/06 for staple removal. <SHANNAN Nava - Last Filed: 12/18/20 11:53> Symptomatic bradycardia with second degree heart block, bifascicular block rate in 30s on admission. Underwent [facility] Roland dual chamber pacemaker placement with Dr Alas yesterday. CXR post device and this am show no pneumo and good lead placement. Tele monitoring showing Intermittent A paced and mostly continual V paced rhythm, rate in 60-70s. 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 Today he reports that head feels more clear and breathing is normal. Pacemaker site covered with dry gauze/ tegaderm dressing. No drainage, redness, swelling noted. Spent 15 min with pt and daughter going over pacemaker site care, restricted activity, remote monitoring, pacemaker function and follow up. Ambulate in rossi to assess for symptoms. If feeling well, He can be discharged from cardiology perspective. We will arrange for follow up in 2 weeks. He will be seeing Dr Alas on 01/06 for staple removal. Patient seen and examined. Case discussed with Jazzmine Torres. Patient tolerating pacemaker site well. Minor discomfort. Pacing 100% of time in the ventricle. Pacemaker function is adequate. Chest x-ray benign. Answered all the questions the patient had. Patient can be discharged home. Will follow up in 10-14 days for wound check and in 6 weeks for pacer check. Will require outpatient workup with echocardiogram, stress may be as well as if negative, cardiac MRI. <Amadou Sultana MD - Last Filed: 12/18/20 13:25> (2) Second degree AV block: Status: Acute <SHANNAN Nava - Last Filed: 12/18/20 11:53> (3) Bifascicular bundle branch block: Status: Acute <SHANNAN Nava - Last Filed: 12/18/20 11:53> (4) Symptomatic bradycardia: Status: Acute <SHANNAN Nava Last Filed: 12/18/20 11:53> (5) Dyspnea on exertion: Status: Acute <SHANNAN Nava - Last Filed: 12/18/20 11:53> Assessment and Plan: prior to pacemaker <SHANNAN Nava - Last Filed: 12/18/20 11:53> Time Spent With Patient Time: Total time spent is greater than 50% in coordination of care (as documented) at patient's floor/unit and/or counseling patient: 30 <SHANNAN Nava Last Filed: 12/18/20 11:53> Time with patient: 25 - 35 minutes <SHANNAN Nava - Last Filed: 12/18/20 11:53> Progress Note: Quality Stroke Does the patient have a stroke diagnosis?: No <SHANNAN Nava - Last Filed: 12/18/20 11:53> Procedures Date of Service Date of Service: 12/18/20 <SHANNAN Nava - Last Filed: 12/18/20 11:53>
--- NOTE | 2020-12-18 12:54 | HO.POSTANES ---
Post Anesthesia Evaluation Post Anesthesia Evaluation Vital Signs: Vital Signs Temp Pulse Resp BP Pulse Ox 12/18/20 09:00 65 17 96 12/18/20 08:00 97.8 F 61 22 H 154/75 H 97 12/18/20 07:00 63 21 H 142/75 H 95 12/18/20 06:00 66 18 151/77 H 97 12/18/20 05:00 63 18 144/69 H 97 12/18/20 04:00 98.0 F 64 19 151/80 H 97 12/18/20 03:00 60 18 125/62 96 12/18/20 02:00 60 17 116/63 95 12/18/20 01:00 60 18 119/61 95 Anesthesia: Monitored Mental Status: Awake Pain Control: Satisfactory Nausea/Vomiting: None Hydration: Adequate Anesthesia-Related Issues: No Anes. Related Issues
--- NOTE | 2020-12-18 15:55 | MHC.CM.PN ---
Patient was discharged prior to being seen by case management.
[2020-12-19 01:16] LABS: Lyme Abs Screen <0.90 index
== END 2020-12-18 10:40 | disposition home or self-care (01) | DRG 244 ==
LOC: HO.ED 11:49 → HO.EDOVER 12:04 → HO.ICU 16:46
PROVIDERS: Physician Assistant Medical; Admitting Provider Internal Medicine Cardiovascular Disease; Emergency Provider Emergency Medicine Emergency Medical Services; PCP Internal Medicine; Visit Provider Internal Medicine Cardiovascular Disease
PROC: 0JH606Z Insertion of Pacemaker, Dual Chamber into Chest Subcutaneous Tissue and Fascia, Open Approach (ICD-10-PCS; principal; 2020-12-17 13:00)
DX: I44.1 Atrioventricular block, second degree (principal); I45.2 Bifascicular block; Z20.822 Contact with and (suspected) exposure to COVID-19; I10 Essential (primary) hypertension
CPT/HCPCS: 36415; 71045; 80053; 83880; 84443; 84484; 85025; 85610; 85730; 86617; 86618; 87635; 93005; 93017; 99285; 99291; C1785; C1892; C1898; J0690; J2250; J3010; Q9967

== ENCOUNTER → 2020-12-20 07:38 | Outpatient (REF) | payer MEDICARE, SELFPAY ==
--- NOTE | 2020-12-20 07:41 | CA_ITS ---
Transthoracic Echocardiogram Patient (Last, First, Middle): Del Nichols, Gender: Male Date of : 1950 Age: 70 Procedure Date: 12/20/2020 Procedure Type: Transthoracic Echocardiogram Location: OP Height: 177.8 cm Weight: 68.04 kg BSA: 1.85 m2 Heart Rate: bpm BP: 122 / 60 mmHg Senior Lead Developer: Referring MD: Amadou Sultana MD Fisheries Officer: Amadou Sultana MD Symptoms: I44.1 - Atrioventricular block, second degree Study Quality: Fair ECG Rhythm: Sinus Conclusions: - 1. Normal LV systolic function with grade 1 diastolic dysfunction 2. Normal cardiac valvular Doppler 3. Normal RV systolic pressure 4. No pericardial effusion Findings Left Ventricle Normal left ventricular size, thickness, and systolic function. The visually estimated ejection fraction is between 55-60%. There is paradoxical septal motion consistent with a right ventricular pacemaker. Spectral Doppler is indicative of an impaired relaxation filling pattern. E/E prime ratio is <8, consistent with normal filling pressures. Evidence suggests grade I (mild) diastolic dysfunction. Right Ventricle Normal right ventricular cavity size and systolic function. There is a pacemaker wire seen in the right ventricle. Atria Both atria are normal in size. There is no evidence of interatrial shunt. A pacemaker wire is identified in the right atrium. Aortic Valve Normal aortic valve structure and function. There is no aortic valve stenosis. There is no aortic valve regurgitation. Mitral Valve Normal mitral valve structure and function. There is trace mitral valve regurgitation. There is no mitral valve stenosis. Pulmonic Valve The pulmonic valve is likely normal. Tricuspid Valve Normal tricuspid valve structure. There is trace tricuspid valve regurgitation. The right ventricular systolic pressure is 32 mmHg. Normal right atrial pressure. There is no evidence of pulmonary hypertension. Great Vessels All visible segments of the aorta are normal in size. The pulmonary artery was not well visualized. Venous The inferior vena cava is normal in size and collapses greater than 50% with inspiration. Pericardium/Pleural There is no evidence of pericardial effusion. Prior Study Comparison No prior study available for comparison. Measurements 2D Linear Measurements IVSd: 1.05 0.6-0.9/0.6-1.0 cm LVIDd: 4.46 3.9-5.3/4.2-5.9 cm LVIDd Index: 2.41 2.4-3.2/2.2-3.1 cm/m2 LVIDs: 2.63 2.0-3.6 cm LVPWd: 1.06 0.7-1.1 cm Ao Root: 3.20 2.1-3.5 cm LA Diam: 3.10 2.7-3.8/3.0-4.0 cm LAIDs Index: 1.68 1.5-2.3 cm/m2 LV Mass: 202.67 67-162/88-224 g LV Mass Index: 109.55 43-95/49-115 g/m2 LVOT Diam: 2.00 3.0+(-)1.3 cm 2D Systolic Function EF 4C: 60.30 >55% EF 2C: 56.70 >55% EF BiP: 56.90 >55% Mitral Valve MV Pk E: 0.57 MV PK A: 0.90 MV Decel Time: 219.00 E/A: 0.60 E'Lateral: 9.79 E'Medial: 5.55 E/E' Med: 10.30 E/E' Lat: 5.90 PHT: 64.00 MVA PHT: 3.44 Decel Gray: 2.62 Aortic Valve AoV Pk Daniel: 1.49 AoV Mn Daniel: 0.96 AoV VTI: 0.35 AoV Pk Grad: 9.00 Aov Mn Grad: 4.00 MAGALYS Cont.VTI: 1.84 LVOT LVOT Pk Daniel: 0.89 LVOT Mn Daniel: 0.61 LVOT VTI: 0.20 LVOT Pk Grad: 3.00 LVOT Mn Grad: 2.00 LVOT Diam: 2.00 LVOT Area: 3.14 Diastolic Function MV Pk E: 0.57 MV Pk A: 0.90 E/A: 0.60 E'Medial: 5.55 E/E' Med: 10.30 E' Laterial: 9.79 E/E' Lat: 5.90 Tricuspid Valve TR Pk Daniel: 2.67 TR Pk Grad: 29.00 RA Press: 3.00 RVSP: 32.00 Great Vessels Aorta Ao Root-2D: 3.20 2.0-3.7 cm Ao Asc: 2.90 2.1-3.4 cm Pulmonary Valve PV Pk Daniel: 1.56 Peak PV Grad: 10.00 Updated in Other Vendor System with Status of Final Amadou Sultana MD electronically signed on 12/20/2020 4:39:16 PM with status of Final
== END ==
LOC: HO.CARD 07:38
PROVIDERS: PCP Internal Medicine; Visit Provider Internal Medicine Cardiovascular Disease
DX: I44.1 Atrioventricular block, second degree (principal)
CPT/HCPCS: 93306

== ENCOUNTER → 2020-12-31 08:00 | Outpatient (REF) | payer MEDICARE, SELFPAY ==
--- NOTE | ~2020-12-31 | NM_ITS ---
Lexiscan Myocardial perfusion study Indication: Bradycardia, shortness of breath, heart block, assess for coronary disease and ischemia Technique: The patient was brought in for a Lexiscan perfusion study on 12/31/2020 and was injected 0.4 mg of Lexiscan intravenously. Within a minute of this injection 25 mCi of sestamibi was given intravenously. Images were obtained using the SPECT gamma camera interlaced with the gating device. Images were obtained in supine position. Resting perfusion study was performed on 01/01/2021. Patient was administered 25 mCi of sestamibi intravenously at rest. Images were then obtained in supine position. Total DLP 91mGy-cm. Images were processed with the software and compared side to side in short axis, horizontal long axis and vertical long axis views. Findings: Raw acquisition reviewed. Arms by the patient's side. The stress perfusion study showed no significant perfusion abnormality. Both uncorrected as well as CT attenuation corrected images were reviewed. The gated study shows normal LV systolic function with calculated LVEF of 65%. LV cavity is normal in size. The gated study shows normal wall thickening and contraction of segments. Resting study shows no significant perfusion abnormality. Gating at rest reveals normal wall motion with ejection fraction at 65%. The findings are consistent with no reversible or fixed perfusion abnormality. MD/NM cardiolite stress test Impression: 1. Myocardial perfusion imaging study shows normal myocardial perfusion. 2. Gated LVEF is 65% during stress and rest. 3. Transient ischemic dilatation not present. EKG component of the test reported separately.
--- NOTE | 2020-12-31 08:05 | CA_ITS ---
Acquisition Time: 2020-12-31 08:08:23 Total Exercise Time: 00:02:00 Test Indications: Ischemia Evaluation Medications: Protocol: LEXISCAN Max HR: 100 BPM 67% of Pred: 148 BPM Max BP: 132/070 mmHG Max Work Load: 1.0 METS Pharmacological stress test with Lexiscan injection, while sittng, without anginal symptoms, without arrythmia, with normotensive response to injection, with nondiagnostic EKG for ischemia. In recovery he had some lightheadedness that was treated with Aminophylline 75mg IVP to reverse Lexiscan with resolution of symptom. Nuclear images pending. Test reviewed with Dr Houston. Referred By: Amadou Sultana Overread By: NATA SARABIA
== END ==
LOC: HO.CARD 08:00
PROVIDERS: PCP Internal Medicine; Visit Provider Internal Medicine Cardiovascular Disease
DX: R00.1 Bradycardia, unspecified (principal); I44.1 Atrioventricular block, second degree; R06.00 Dyspnea, unspecified
CPT/HCPCS: 78452; 93017; A9500; J0280; J2785

== ENCOUNTER 2021-01-03 09:41 | Outpatient (REF) | payer MEDICARE, SELFPAY ==
[2021-01-03 11:36] LABS: B Type Natriuretic Peptide 24 pg/mL (<100)
[2021-01-03 12:11] LABS: Anion Gap 14 (12-20); Blood Urea Nitrogen 20 mg/dL (9-16); Calcium 9.7 mg/dL (8.4-10.2); Carbon Dioxide 25 mmol/L (22-29); Chloride 103 mmol/L (96-108); Estimated Glomerular Filt Rate > 60; Glucose Random 89 mg/dL (60-115); Potassium 4.9 mmol/L (3.3-5.1); Sodium 137 mmol/L (135-145)
== END 2021-01-03 09:42 | disposition home or self-care (01) ==
LOC: HO.LAB 09:41
PROVIDERS: PCP Psychiatry & Neurology Neurology; Visit Provider Internal Medicine Cardiovascular Disease
DX: I10 Essential (primary) hypertension (principal); Z95.0 Presence of cardiac pacemaker
CPT/HCPCS: 36415; 80048; 83880; 99212

== ENCOUNTER → 2021-04-28 14:57 | Outpatient (BNVA) | payer MEDICARE, SELFPAY | PROVIDERS: PCP Psychiatry & Neurology Neurology; Visit Provider Internal Medicine Cardiovascular Disease | DX: Z45.018 Encounter for adjustment and management of other part of cardiac pacemaker (principal); I10 Essential (primary) hypertension | CPT/HCPCS: 99212 ==

== ENCOUNTER → 2021-04-29 10:57 | Outpatient (BNVA) | payer MEDICARE, SELFPAY | PROVIDERS: PCP Psychiatry & Neurology Neurology; Visit Provider Internal Medicine Cardiovascular Disease | DX: Z13.89 Encounter for screening for other disorder (principal) ==

== ENCOUNTER → 2022-12-12 23:59 | Outpatient (BNV) | payer MEDICARE, SELFPAY ==
--- NOTE | 2022-12-14 13:43 | MHC.OFFVIS ---
Intake Intake Visit Reasons: Remote Device Check- [facility] Allergies No Known Allergies Allergy (Verified 04/28/21 15:13) PFS Medical History (Updated 04/28/21 @ 16:07 by Amadou Sultana MD) Cardiac pacemaker in situ HTN (hypertension) Second degree AV block Surgical History (Updated 04/28/21 @ 16:07 by Amadou Sultana MD) Status post placement of cardiac pacemaker Hx of eye surgery Hx of prostatectomy Family History Father No problems noted. Mother Diabetes Social History Household Members: Family Housing: House Do you presently have visiting nurse or other home services: No Patient Tobacco Use Status: Never used Tobacco Second Hand Smoke Exposure: No Office Procedures Cardiac Device Check Cardiac Device Check Details: remote pacemaker report generated 12/12/2022. Pacemaker function is adequate. Patient ventricular pacer dependent. Patient has not been seen in the clinic for a long time, will need office visit [id number] Cardiac Device Interrogation, pacemaker Procedure code (CPT) selection complete Coding Level of Care Code Procedure Only CPT Codes Cardiac Device Check - Cardiac Device 12: [id number] Cardiac Device Interrogation, pacemaker ([id number])
== END ==
PROVIDERS: PCP Psychiatry & Neurology Neurology; Visit Provider Internal Medicine Cardiovascular Disease
DX: I44.0 Atrioventricular block, first degree (principal); Z95.0 Presence of cardiac pacemaker
CPT/HCPCS: 93294

== ENCOUNTER → 2023-06-11 23:59 | Outpatient (BNV) | payer MEDICARE, SELFPAY ==
--- NOTE | 2023-08-29 12:30 | MHC.OFFVIS ---
Intake Visit Reasons: Remote device check- [facility] Allergies No Known Allergies Allergy (Verified 06/25/23 10:31) [facility] Medical History (Updated 07/07/23 @ 15:41 by Perfecto Marie MD) Pulmonary nodules Asthma with COPD Colon cancer Cardiac pacemaker in situ HTN (hypertension) Second degree AV block Surgical History Hx of colonoscopy Status post placement of cardiac pacemaker Hx of eye surgery Hx of prostatectomy Family History Father No problems noted. Mother Diabetes Social History (Updated 06/25/23 @ 10:31 by Madisyn Naidu) Household Members: Family Housing: House Do you presently have visiting nurse or other home services: No Comment: sss prior to icu Patient Tobacco Use Status: Never used Tobacco Second Hand Smoke Exposure: No service: No Current occupational status: unemployed Office Procedures Cardiac Device Check Cardiac Device Check Details: PPM Good battery life 5-7 years. No new alerts. V paced more than 99%. 24144-XX Cardiac Device Check, pacemaker dual lead Procedure code (CPT) selection complete Assessment & Plan Assessment & Plan (1) Cardiac pacemaker in situ: Code(s): Z95.0 - Presence of cardiac pacemaker Category: Medical Plan Coding Level of Care Code Procedure Only Diagnoses Cardiac pacemaker in situ Z95.0 CPT Codes Cardiac Device Check - Cardiac Device 2: 71789-PN Cardiac Device Check, pacemaker dual lead ([id number])
== END ==
PROVIDERS: PCP Internal Medicine; Visit Provider Internal Medicine Cardiovascular Disease
DX: Z45.018 Encounter for adjustment and management of other part of cardiac pacemaker (principal)
CPT/HCPCS: 93294

== ENCOUNTER 2023-06-14 08:47 | Outpatient (AMB) | payer MEDICARE, SELFPAY ==
--- NOTE | 2023-06-14 08:51 | A.OFFVIS_ITS ---
Vital Signs 06/14/23 08:53 Height 5 ft 10 in Weight 156 lb 8.451 oz BMI 22.5 BP 156/64 H Blood Pressure Location Lt brachial Position Sitting Pulse 83 Intake Visit Reasons: angely rivero Intake Note: Del presents in the office as a new patient. CC: He states that he has diarrhea that is very watery. No formed stools. He states labs also detected norovirus. No pains in the stomach and no blood when he has a BM. All Source Intelligence Technician Required: No Allergies No Known Allergies Allergy (Verified 06/14/23 08:53) HPI HPI ok peggy rivero: Details: HPI 73 yr old m here for assessment Was noted to have weight loss by son and new iron def anemia CT scan ordered by PCP with concern for right sided colonic mass He had some diarrhea and stool tests came back for norvirus he still has looser stools no blood in stools no nausea or vomiting he himself feels weight is stable appetite is not that good no dysphagia no GERD ROS: Constitutional : No Weight loss, No Fever, No Chills ENT/Mouth : No sore throat, No Rhinorrhea Eyes: No Swelling, No Redness Cardiovascular : No Chest Pain, No SOB, No Edema Respiratory : No Cough, No Sputum, mild Wheezing Gastrointestinal : see HPI Genitourinary : NO Dysuria, No Urinary Frequency, No Hematuria, No Urgency Musculoskeletal : No joint pain, No Myalgias, No Joint Swelling Skin : No Skin Lesions, No rash Neuro : No Weakness, No Numbness, No Dizziness, No Headache Psych : No Anxiety/Panic, No Depression Heme/Lymph: No Bruising, No Lymphadenopathy Endocrine : No Polyuria, No Polydipsia All other systems reviewed and are negative. Medical History HTN (hypertension) Second degree AV block Family History Family History Father No problems noted. Mother \ Diabetes Surgical History Hx of eye surgery Hx of prostatectomy Social History Patient Tobacco Use Status: Never used Tobacco , no drugs or alcohol Second Hand Smoke Exposure: No EXAM: GENERAL: The patient is well developed and nontoxic. VITAL SIGNS:see workflow HEENT: Nonicteric sclerae, PERRLA, EOMI. Oropharynx clear. Moist mucous membranes. Conjunctivae appear well perfused. No thyroid mass. CHEST: Chest wall is nontender. HEART: Regular rate and rhythm without murmurs. LUNGS: Clear to auscultation bilaterally. ABDOMEN: Soft, positive bowel sounds, nontender, no organomegaly.no flank tenderness SKIN: No rash, no excessive bruising, petechiae, or purpura. NEUROLOGIC: Cranial nerves II-XII intact without motor/sensory deficit. Psych: normal affect A/P: 1/ Abn imaging: concern for right sided CRC with circumferential thickening PLAN: 1/ urgent colonoscopy with suprep [facility] Medical History Cardiac pacemaker in situ HTN (hypertension) Second degree AV block Surgical History Hx of colonoscopy Status post placement of cardiac pacemaker Hx of eye surgery Hx of prostatectomy Family History Father No problems noted. Mother Diabetes Social History Household Members: Family Housing: House Do you presently have visiting nurse or other home services: No Comment: sss prior to icu Patient Tobacco Use Status: Never used Tobacco Second Hand Smoke Exposure: No Physical Exam Vital Signs: Last Vital Signs Pulse 83 06/14/23 08:53 BP 156/64 H 06/14/23 08:53 BMI result Body Mass Index 22.5 Assessment & Plan Assessment & Plan (1) Colonic mass: Code(s): K63.89 - Other specified diseases of intestine Category: Medical Plan: colonoscopy--urgent Medications: New sodium,potassium,mag sulfates 17.5-3.13-1.6 gram (Suprep Bowel Prep Kit) DILUTE; drink 1/2 at 6-8 pm and half at 11 PM- 1AM 354 mL 0RF Coding Level of Care Code New Pt Level 4 (92656) Diagnoses Colonic mass K63.89
[2023-06-14 08:53] VITALS: BP 156/64; PULSE 83; BMI 22.5
== END 2023-06-14 09:27 | disposition home or self-care (01) ==
PROVIDERS: PCP Psychiatry & Neurology Neurology; Visit Provider Internal Medicine Gastroenterology
DX: K63.89 Other specified diseases of intestine (principal)
CPT/HCPCS: 99204

== ENCOUNTER → 2023-06-14 08:47 | Outpatient (BNVA) | payer MEDICARE, SELFPAY | PROVIDERS: PCP Psychiatry & Neurology Neurology; Visit Provider Internal Medicine Gastroenterology | DX: K63.89 Other specified diseases of intestine (principal); R19.7 Diarrhea, unspecified | CPT/HCPCS: 99202 ==

== ENCOUNTER 2023-06-16 12:03 | Day surgery (SDC) | payer MEDICARE, SELFPAY ==
--- NOTE | 2023-06-15 11:09 | P.CONAN_ITS ---
Documented by User: Sofia Mcadams NP 06/15/23 11:13 HPI - Anesthesia Eval Consult details Narrative: 73yo M for Colonoscopy Added on urgently by GI for mass noted on CT. Pacer in situ. Last interrogation 02/2023 on chart. No cardiac f/u in >2 years. Discharged from [facility] cardiology for no f/u. Dr Ramey notified. [facility] Active Problems Active Problems: All Active Problems Colonic mass (Acute) Cardiac pacemaker in situ (Acute) HTN (hypertension) (Acute) Past Medical History Medical History Cardiac pacemaker in situ HTN (hypertension) Second degree AV block Family History Family History Father No problems noted. Mother Diabetes Family history of problems with anesthesia: No Surgical History Surgical History Hx of colonoscopy Status post placement of cardiac pacemaker Hx of eye surgery Hx of prostatectomy History of Problems with Anesthesia: No Social History Social History Household Members: Family Housing: House Do you presently have visiting nurse or other home services: No Comment: sss prior to icu Patient Tobacco Use Status: Never used Tobacco Second Hand Smoke Exposure: No Use of substances other than those prescribed or required for medical reasons: No Are you DNR?: No Advance Directives: No Advance Directives Information Provided: Yes Meds Allergies Allergy/AdvReac Type Severity Reaction Status Date / Time No Known Allergies Allergy Verified 06/14/23 08:53 Home Medications ?Medication ?Instructions ?Recorded ?Confirmed ?Last Taken ?Type albuterol sulfate 90 mcg/actuation inhalation 06/14/23 Unknown History aerosol inhaler Exam Pertinent Lab Results Pertinent Lab Results: CBC and CMP 05/2023 from outside facility. Mild low Hgb and Fe. Otherwise nml. Narrative Narrative: ECHO 2020 Conclusions: - 1. Normal LV systolic function with grade 1 diastolic dysfunction 2. Normal cardiac valvular Doppler 3. Normal RV systolic pressure 4. No pericardial effusion NM cardiolite stress test 2020 Impression: 1. Myocardial perfusion imaging study shows normal myocardial perfusion. 2. Gated LVEF is 65% during stress and rest. 3. Transient ischemic dilatation not present. EKG component of the test reported separately. Assessment and Plan Assessment Anesthesia Assessment: Chart Reviewed Final Anesthetic Review Family History of Problems with Anesthesia: No History of Problems with Anesthesia: No Documented by User: Bianca Washington MD 06/16/23 15:10 PMF Past Medical History Medical History Cardiac pacemaker in situ HTN (hypertension) Second degree AV block Family History Family History Father No problems noted. Mother Diabetes Surgical History Surgical History Hx of colonoscopy Status post placement of cardiac pacemaker Hx of eye surgery Hx of prostatectomy Social History Social History Household Members: Family Housing: House Do you presently have visiting nurse or other home services: No Comment: sss prior to icu Patient Tobacco Use Status: Never used Tobacco Second Hand Smoke Exposure: No Use of substances other than those prescribed or required for medical reasons: No Are you DNR?: No Advance Directives: No Advance Directives Information Provided: Yes Meds Allergies Allergy/AdvReac Type Severity Reaction Status Date / Time No Known Allergies Allergy Verified 06/14/23 08:53 Home Medications ?Medication ?Instructions ?Recorded ?Confirmed ?Last Taken ?Type albuterol sulfate 90 mcg/actuation inhalation 06/14/23 Unknown History aerosol inhaler Exam Airway Mallampati Class: II TM Dist: >3cm Neck ROM: Full Heart: rrr Lungs: cta Assessment and Plan Assessment Anesthesia Assessment: Anesthesia Plan Discussed Final Anesthetic Review NPO: Yes ASA Class: III Final Preanesthetic Review: No Changes in Pt Med Stat, Meds/Allgs Chart Reviewed and Consent Obtained/Reviewed Patient Risk: Low Procedure Risk: Low Anesthetic Plan Anesthetic Plan: MAC: Disposition: Standard PACU
--- NOTE | 2023-06-16 13:57 | ECG_ITS ---
Test Reason : preop Blood Pressure : / mmHG Vent. Rate : 079 BPM Atrial Rate : 079 BPM P-R Int : 204 ms QRS Dur : 162 ms QT Int : 448 ms P-R-T Axes : 075 056 103 degrees QTc Int : 513 ms Atrial-sensed ventricular-paced rhythm Abnormal ECG When compared with ECG of 17-DEC-2020 10:13, Electronic ventricular pacemaker has replaced Junctional rhythm Vent. rate has increased BY 42 BPM Referred By: Sofia Mcadams Electronically Signed By:BRAYDON SALGADO
[2023-06-16 14:06] VITALS: BMI 23.0
[2023-06-16 14:13] VITALS: BP 150/77; PULSE 84; RESP 16; TEMP 36.9; O2SAT 100
[2023-06-16] MEDS: Lactated Ringers 1,000 ML 100 ML IVCONT (14:30)
--- NOTE | 2023-06-16 15:01 | MHC.SHP ---
Pre-Procedural Eval Section A - 24 Hr Update-Section A only Date of Service: 06/16/23 The patient is an INPATIENT: No The patient has been examined within 24 hours of the surgical procedure. The History & Physical has been completed within 30 days and I have reviewed it.: Yes Section B - Complete if H&P > 30 days Chief Complaint: Other specified diseases of intestine Relevant Family History (Specify if Yes): No Relevant Social History: None Present Medications: see Short Stay Collaborative assessment Medical History: Significant History History of Previous Operations: Relevant previous surgery/procedure and date(s) Allergies: Allergies Allergy/AdvReac Type Severity Reaction Status Date / Time No Known Allergies Allergy Verified 06/14/23 08:53 Review of Systems Sugical H&P ROS: Negative: Constitution, Cardiovascular, Respiratory, Neurological, Psychiatric, Hem-Onc, Allergic/Immunologic, Gastrointestinal, Genitourinary, Musculoskeletal, Integumentary, Endocrine and Eyes/Ears/Nose/Throat Exam Surgical H&P Exam: Normal: HEENT, Normal: Heart, Normal: Lungs, Normal: Extremities, Normal: Abdomen, Normal: Skin and Normal: Neurological Plan Diagnosis/Plan: Unchanged I have reviewed the history and physical and performed a pertinent physical examination on my patient. No changes have occurred unless specified. Time Spent With Patient Time: Total time managing care of this patient today ____ minutes.
--- NOTE | 2023-06-16 15:46 | HO.OPN-COLON ---
Colonoscopy Operative Note Operative Note Date of Service: 06/16/23 Narrative: Operative Information Procedure Description: Colonoscopy Indication: mass on CT Anesthesia: MAC COLONOSCOPY Instrument: Olympus variable stiffness pediatric scope 190L Colonoscopy Monitoring: Vital signs and clinical assessment, continuous EKG monitoring, Pulse oximetry, Carbon Dioxide monitoring and blood pressure monitoring were done throughout the procedure. Colon withdrawal time was 15 minutes. Procedure: The patient was placed in the left lateral decubitis position and pre-procedure medications were administered. After a digital rectal examination of the ano-rectum, the video colonoscope was inserted into the rectum and advanced through the colon to the cecum/TI. The colonoscope was slowly withdrawn in a retrograde panoramic fashion and the colon mucosa was carefully examined including a retroflexed view of the rectum. Findings and interventions are described below. Procedure Difficulty: moderate Findings: Terminal Ileum-not intubated Cecum:normal Ascending Colon: at distal AC close to the hepatic flexure there was a circumferential mass with irregular edges and friable tissue, almost occluding the lumen, multiple biopsies were taken. The distal limit of the mass was marked with Renee Ink Transverse Colon -normal Descending Colon:normal Sigmoid Colon: normal Rectum: Retroflexion with small internal hemorrhoids seen, grade I Anorectum - normal Intervention: renee ink, biopsies Colon preparation: [place] Bowel Preparation Scale Right colon; 2 Transverse colon: 2 Left colon; 2 (0 = Unprepared colon segment with mucosa not seen due to solid stool that cannot be cleared. 1 = Portion of mucosa of the colon segment seen, but other areas of the colon segment not well seen due to staining, residual stool and/or opaque liquid. 2 = Minor amount of residual staining, small fragments of stool and/or opaque liquid, but mucosa of colon segment seen well. 3 = Entire mucosa of colon segment seen well with no residual staining, small fragments of stool or opaque liquid) Impression and Post Procedure Diagnosis: colonic mass internal hemorrhoids Plan: low residue diet, avoid chunky meats and nuts stool softener and can use miralax Above findings were reviewed with the patient and relevant handouts were provided if indicated.
[2023-06-16 15:50] VITALS: BP 108/58; PULSE 73; RESP 16; TEMP 36.1; O2SAT 98
[2023-06-16 16:05] VITALS: BP 128/79; PULSE 75; RESP 16; O2SAT 98
[2023-06-16 16:25] VITALS: BP 147/76; PULSE 78; RESP 18; O2SAT 98
[2023-06-16 16:40] VITALS: BP 148/73; PULSE 80; RESP 18; O2SAT 98
[2023-06-16 16:50] VITALS: TEMP 36.3
== END 2023-06-16 17:30 | disposition home or self-care (01) ==
PROVIDERS: PCP Internal Medicine; Visit Provider Internal Medicine Gastroenterology
PROC: 0DJD8ZZ Inspection of Lower Intestinal Tract, Via Natural or Artificial Opening Endoscopic (ICD-10-PCS; CPT 45378; principal; 2023-06-16 15:10)
DX: C18.2 Malignant neoplasm of ascending colon (principal); K64.8 Other hemorrhoids
CPT/HCPCS: 45380; 45381; 88305; 88341; 88342; 88360; 93005; J2704

== ENCOUNTER → 2023-06-16 12:03 | Outpatient (BNV) | payer MEDICARE, SELFPAY | PROVIDERS: PCP Internal Medicine; Visit Provider Internal Medicine Gastroenterology | DX: C18.2 Malignant neoplasm of ascending colon (principal); K64.8 Other hemorrhoids; R93.3 Abnormal findings on diagnostic imaging of other parts of digestive tract | CPT/HCPCS: 45380; 45381 ==

== ENCOUNTER → 2023-06-16 13:57 | Outpatient (BNV) | payer MEDICARE, SELFPAY | PROVIDERS: PCP Internal Medicine; Visit Provider Internal Medicine | DX: R94.31 Abnormal electrocardiogram [ECG] [EKG] (principal) | CPT/HCPCS: 93010 ==

== ENCOUNTER 2023-06-23 10:56 | Outpatient (AMB) | payer MEDICARE, SELFPAY ==
--- NOTE | 2023-06-23 11:00 | A.OFFVIS_ITS ---
Intake Visit Reasons: Adenocarcinoma Intake Note: This patient was referred by for an assessment for Superficial fragments of adenocarcinoma. Patient c/o; reports no changes. Implementation Technician Required: No Accompanied by: Other Relationship Allergies No Known Allergies Allergy (Verified 06/25/23 10:31) Medication List - Last Reconciled 06/23/23 by Julien Cutler MD albuterol sulfate 90 mcg/actuation inhalation multivitamin 1 tab PO DAILY sodium,potassium,mag sulfates 17.5-3.13-1.6 gram (Suprep Bowel Prep Kit) DILUTE; drink 1/2 at 6-8 pm and half at 11 PM- 1AM HPI HPI Adenocarcinoma: Details: 73-year-old male referred for colon cancer. He had undergone a colonoscopy last 06/17/[address] Araujo for weight loss and anemia. He apparently also had a CT scan in another institution showing a right colon mass. His colonoscopy showed showed a lesion in the left colon and biopsies revealed an adenocarcinoma. This lesion was seen close to the hepatic flexure where there was a circumferential mass with irregular edges and friable tissue, almost occluding the lumen, multiple biopsies were taken. The distal limit of the mass was marked with Renee Ink . [place] He therefore has never had any colonoscopy. He says he does not see his primary care physician regularly. [place] has [place] the country this time for just the past month so far. He denies any abdominal pain. He said he had diarrhea for about 3 weeks recently and was diagnosed to have norovirus. [facility] Medical History Pulmonary nodules Asthma with COPD Colon cancer Cardiac pacemaker in situ HTN (hypertension) Second degree AV block Surgical History Hx of colonoscopy Status post placement of cardiac pacemaker Hx of eye surgery Hx of prostatectomy Family History Father No problems noted. Mother Diabetes Social History (Updated 06/25/23 @ 10:31 by Madisyn Naidu) Household Members: Family Housing: House Do you presently have visiting nurse or other home services: No Comment: sss prior to icu Patient Tobacco Use Status: Never used Tobacco Second Hand Smoke Exposure: No service: No Current occupational status: unemployed Review of Systems Const Denies chills, Denies fever(s) and Reports weight loss Card Denies chest pain, Denies dyspnea and Denies dyspnea on exertion Resp Denies cough, Denies dyspnea and Denies dyspnea on exertion GI Denies hematochezia and Denies change in bowel habits Denies hematuria and Denies difficulty urinating Musc Denies back pain and Denies limited range of motion Neuro Denies focal weakness and Denies convulsions Psych Denies depression and Denies mood swings Physical Exam Const General: comfortable and no acute distress Orientation/consciousness: patient oriented x3 Neck Neck: Yes no lymphadenopathy Resp Auscultation: clear to auscultation bilaterally Cardio Rhythm: regular rhythm GI Palpation (GI): Soft to palpation, nontender and no guarding Neuro General: patient oriented x3 Assessment & Plan Assessment & Plan (1) Colon cancer: Code(s): C18.9 - Malignant neoplasm of colon, unspecified Category: Medical Plan: Unfortunately, biopsy for this lesion in the distal ascending 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 I explained to him that we will therefore metastatic workup a CT scan of the abdomen pelvis. He understands that treatment would be surgical resection with hand assisted laparoscopic right colon resection and possible conversion to open. I explained the technique of this procedure. I reviewed the risks including but not limited to bleeding, infections, anastomotic leak, blood clots, pneumonia, as well as the benefits and alternatives. He actually had a CAT scan done in [facility] and I will review this. This does not reveal any lesion in the liver so far. The cancer seems to be in the right colon. He is to see Dr. Garza of Cardiology today in view of his history of pacemaker placement. He is going to see Dr. Marie of pulmonology was well because of question of a pulmonary bleb. He is to have a meeting with Dr. Lobo this Wednesday and says that he will get back to me after that to schedule for right colon resection. His son Dejuan was with him during the entire discussion. Coding Level of Care Code New Pt Level 4 (70733) Diagnoses Colon cancer C18.9
== END 2023-06-23 11:33 | disposition home or self-care (01) ==
PROVIDERS: PCP Internal Medicine; Visit Provider Surgery
DX: C18.9 Malignant neoplasm of colon, unspecified (principal)
CPT/HCPCS: 99204

== ENCOUNTER → 2023-06-23 10:56 | Outpatient (BNVA) | payer MEDICARE, SELFPAY | PROVIDERS: PCP Internal Medicine; Visit Provider Surgery | DX: I48.0 Paroxysmal atrial fibrillation (principal); I10 Essential (primary) hypertension; I44.1 Atrioventricular block, second degree; C18.9 Malignant neoplasm of colon, unspecified; J44.89 Other specified chronic obstructive pulmonary disease; R91.8 Other nonspecific abnormal finding of lung field; Z95.0 Presence of cardiac pacemaker | CPT/HCPCS: 94010; 99202; 99212 ==

== ENCOUNTER 2023-06-23 11:34 | Outpatient (AMB) | payer MEDICARE, SELFPAY ==
--- NOTE | 2023-06-23 11:35 | A.OFFVIS_ITS ---
Vital Signs 06/23/23 11:36 Height 5 ft 10 in Weight 155 lb 6.814 oz BMI 22.3 BP 142/68 H Blood Pressure Location Lt brachial Position Sitting Pulse 92 Pulse Source Pulse Oximeter Pulse Oximetry (%) 99 Oxygen Delivery Method Room Air Intake Visit Reasons: wheeze Intake Note: pt is a new patient for some wheezing that was going on for 4 days and now cough with yellow phelgm. possible surgery in future. 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 HE IS BEING READIED FOR SURGERY. HE HAS HAD INTERMITTENT WHEEZING SINCE HE CAME , FROM [place] , AND HAS NEEDED TO USE ALBUTEROL A FEW TIMES. HE HAS HISTORY OF INTERMITTENT WHEEZING USUALLY DUE TO CHANGE IN THE ENVIRONMENT, HE TRAVELS FOR THE LAST 10 YEARS OR SO. AND HAS NEEDED TO USE THE INHALER ONLY RARELY. THIS TIME THE WHEEZING AND WHISTLING SOUNDS IN THE CHEST HAVE GONE ON FOR A FEW WEEKS. HE IS NONSMOKER. HE DENIES DYSPNEA ON EXERTION. THERE IS FAMILY HISTORY OF MILD BRONCHIAL ASTHMA [facility], [facility] Medical History (Updated 06/23/23 @ 12:28 by Perfecto Marie MD) Pulmonary nodules Asthma with COPD Colon cancer Cardiac pacemaker in situ HTN (hypertension) Second degree AV block Surgical History Hx of colonoscopy Status post placement of cardiac pacemaker Hx of eye surgery Hx of prostatectomy Family History Father No problems noted. Mother Diabetes Social History Household Members: Family Housing: House Do you presently have visiting nurse or other home services: No Comment: sss prior to icu Patient Tobacco Use Status: Never used Tobacco Second Hand Smoke Exposure: No Review of Systems Const All systems reviewed & are unremarkable except as noted in HPI and below Eyes Reports no additional complaints ENT Reports no additional complaints Card Denies chest pain, Denies irregular heart rhythm and Denies lightheadedness Resp Reports as per HPI GI Reports GI cramping ( MILD) and Denies diarrhea Reports no additional complaints and Reports other ( HISTORY OF PREVIOUS PROSTATECTOMY) Musc Reports no additional complaints Skin/Breast Reports system reviewed and no additional complaints, except as documented Neuro Reports no additional complaints Psych Reports no additional complaints Mahendra/Lymph Reports no additional complaints Physical Exam Vital Signs: Last Vital Signs Pulse 92 06/23/23 11:36 BP 142/68 H 06/23/23 11:36 Pulse Ox 99 06/23/23 11:36 Oxygen Delivery Method Room Air 06/23/23 11:36 BMI result Body Mass Index 22.3 Const General: healthy appearing, comfortable, no acute distress, alert and awake Orientation/consciousness: patient oriented x3 HEENT Head: Yes normal to inspection General nose exam: No nasal polyps present and No nasal discharge present Face and sinus: Yes sinuses nontender Mouth: oropharynx normal Throat: Yes posterior oropharynx normal Eyes General: appearance normal, both eyes and all related structures Neck Neck: Yes normal visual inspection, Yes no lymphadenopathy, Yes trachea midline and Yes no JVD Thyroid: Thyroid normal Chest Chest palpation & inspection: normal inspection of the chest, normal palpation of entire chest wall, no tenderness and Pacemaker present Resp Other: PERCUSSION NOTE IS RESONANT, HE HAS GOOD BREATH SOUNDS ON BOTH SIDES. A FEW FINE WHEEZES HEARD OVER THE RIGHT MID CHEST. Cardio Palpation: normal PMI Rate: regular rate Rhythm: regular rhythm Heart sounds: no gallops and no murmurs Peripheral pulses: Peripheral pulses 2+ throughout GI Palpation (GI): Soft to palpation, nontender, No hepatosplenomegaly present and no masses Auscultation: normal bowel sounds Back/Spine/Pelvis Thoracic/Lumbar Spine: thoracic and lumbar spine normal to inspection Skin General skin exam: no rashes or lesions noted Neuro General: patient oriented x3 and no focal motor deficits Cranial nerves: Yes CN's II-XII intact bilaterally Extrem General: Yes normal to inspection, Yes no clubbing, cyanosis or edema and Yes no calf tenderness Psych Appearance: grossly normal and well kempt Speech and movement: Normal speech and movement present Office Procedures Spirometry Testing Spirometry Comments: In office spirometry completed. Results to Dr Marie. [address]- Spirometry Results Reviewed Results Reviewed: SPIROMETRY IN THE OFFICE. FVC 54%. FEV1 38%. FEV1/FVC= 52. ALEX 25-75 = 16% HE WAS FOUND TO HAVE FREQUENT COUGH AND COULD NOT GIVE HIS BEST EFFORT. Assessment & Plan Assessment & Plan (1) Asthma with COPD: Comment: BY HISTORY IT SEEMS THAT HE HAS MILD INTERMITTENT BRONCHIAL ASTHMA, WHICH GETS WORSE DURING ENVIRONMENTAL CHANGES. HOWEVER SPIROMETRY INDICATES THAT HE HAS RATHER SEVERE ASTHMA /COPD SYNDROME. Code(s): J44.89 - Other specified chronic obstructive pulmonary disease Category: Medical Plan: HAD A GOOD DISCUSSION ABOUT THE FINDINGS, AND TREATMENT. I WILL START HIM ON SYMBICORT 160-4.52 PUFFS B.I.D. REGULARLY. ALBUTEROL HFA 2 PUFFS Q 4-6 HOURS P.R.N. (2) Pulmonary nodules: Comment: CT SCAN AT [facility], SHOWS CENTRI LOBULAR EMPHYSEMA. AND A FEW SMALL NODULES 3-4 MM IN SIZE IN LEFT LOWER LOBE. THERE IS 4 MM SUB PLEURAL NODULE IN RIGHT LOWER LOBE POSTERI EVETTE AND AN ELONGATED 7 MM PERIFISSURAL NODULE ON THE RIGHT SIDE MOST LIKELY A LYMPH NODE NO MEDIASTINAL OR HILAR LYMPHADENOPATHY IS NOTED I THINK MOST LIKELY THESE NODULES OR BENIGN AND NONSPECIFIC. HE IS NONSMOKER SO HAS RELATIVELY LOW RISK FOR PULMONARY NEOPLASM. HOWEVER IN VIEW OF COLON CANCER METASTATIC ETIOLOGY CAN .NOT BE RULED OUT. Code(s): R91.8 - Other nonspecific abnormal finding of lung field Category: Medical Plan: I WOULD SUGGEST THAT WE SHOULD REPEAT CT SCAN. OF THE CHEST AFTER A SHORT INTERVAL LIKE 3 MONTHS . Plan FAR CLEARANCE FOR PENDING ,SURGERY I S CONCERNED , I WOULD LIKE TO OPTIMIZE HIS PULMONARY CONDITION, DURING THE NEXT 1 WEEK OR SO. WILL REPEAT SPIROMETRY AFTER 1 WEEK Orders: Orders AMB Spirometry Testing Today C18.9 - Malignant neoplasm of colon, unspecified Medications: New budesonide-formoterol 160-4.5 mcg/actuation (Symbicort) 2 puffs inhalation BID 10.2 grams 3RF ASTHMA/COPD 30 days Coding Level of Care Code New Pt Level 3 (88869) Diagnoses Asthma with COPD J44.89 Pulmonary nodules R91.8 CPT Codes Spirometry - CPT: 67775- Spirometry ([id number])
[2023-06-23 11:36] VITALS: BP 142/68; PULSE 92; O2SAT 99; BMI 22.3
== END 2023-06-23 12:19 | disposition home or self-care (01) ==
PROVIDERS: PCP Internal Medicine; Visit Provider Internal Medicine
DX: J44.89 Other specified chronic obstructive pulmonary disease (principal); R91.8 Other nonspecific abnormal finding of lung field
CPT/HCPCS: 94010; 99203

== ENCOUNTER 2023-06-23 14:29 | Outpatient (AMB) | payer MEDICARE, SELFPAY ==
[2023-06-23 14:31] VITALS: BP 130/64; PULSE 93; BMI 22.3
--- NOTE | 2023-06-23 14:31 | MHC.OFFVIS ---
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 Sultana. He has background history of advanced AV block for which he had permanent pacemaker placement in 2020. He has been pacemaker dependent since then and device interrogation has shown V pacing more than 99% of time. He is here after 2 years from [facility]. He was previously was seeing every 6 months. He was complaining of some fatigue and shortness of breath which led to some blood workup showing anemia. This led to further testing including colonoscopy which has raised concern for colon cancer this point. He has seen General surgery and also plans to take a 2nd opinion from [facility] for resection. He has been getting some shortness of breath which is somewhat explained by anemia. He also was wheezing after recent viral infection and his PFTs had shown concern for asthma and he is on inhalers. He has no chest discomfort. He gets shortness of breath with more than usual activities. Blood pressure is well controlled. Device interrogation was reviewed. [facility] Medical History (Updated 06/23/23 @ 12:28 by Perfecto Marie MD) Pulmonary nodules Asthma with COPD Colon cancer Cardiac pacemaker in situ HTN (hypertension) Second degree AV block Surgical History Hx of colonoscopy Status post placement of cardiac pacemaker Hx of eye surgery Hx of prostatectomy Family History Father No problems noted. Mother Diabetes Social History Household Members: Family Housing: House Do you presently have visiting nurse or other home services: No Comment: sss prior to icu Patient Tobacco Use Status: Never used Tobacco Second Hand Smoke Exposure: No Review of Systems Const Denies chills, Denies fatigue, Denies fever(s), Denies frequent falls, Denies weakness, Denies weight gain and Denies weight loss ENT Denies dizziness Card Denies chest pain, Denies leg edema, Denies lightheadedness, Denies palpitations, Denies dyspnea and Denies dyspnea on exertion Resp Denies cough, Denies dyspnea and Denies dyspnea on exertion GI Denies hematochezia Musc Denies abnormal gait, Denies muscle weakness, Denies numbness, Denies radiating pain into limb and Denies tingling Neuro Denies abnormal gait, Denies dizziness, Denies frequent falls, Denies numbness, Denies tingling and Denies weakness Endo Denies fatigue and Denies palpitations Physical Exam Vital Signs: Last Vital Signs Pulse 93 06/23/23 14:31 BP 130/64 06/23/23 14:31 BMI result Body Mass Index 22.3 GENERAL APPEARANCE: in no acute distress, pleasant. NECK: no carotid bruit, no jugular venous distention. SKIN: no suspicious lesions, warm and dry. HEART: no murmurs, regular rate and rhythm. LUNGS: Mild end expiratory wheezes. ABDOMEN: soft, nontender. EXTREMITIES: no edema. PERIPHERAL PULSES: equal. NEUROLOGIC: No gross deficits, AAO X 3 Assessment & Plan Assessment & Plan (1) Cardiac pacemaker in situ: Code(s): Z95.0 - Presence of cardiac pacemaker Category: Medical (2) Colon cancer: Code(s): C18.9 - Malignant neoplasm of colon, unspecified Category: Medical Plan Pleasant 73 year gentleman who is here for follow-up. He has known history of advanced AV block and underwent permanent pacemaker placement. He is V paced all the time. Battery life is more than 5 years currently. Clinically not in heart failure but has some shortness of breath which could be related to anemia related to colon cancer. In any case given the fact that he is V paced all the time I have advised him to do echocardiogram to assess LV function. This will also be important as he gets treatment for colon cancer which may involve chemotherapy and may affect choice of chemotherapy. I think he is intermediate risk for perioperative complications in case he decides to go for colon cancer surgery. Thank you for allowing me to participate in the care of your patient. Please feel free to contact me if you have any questions. Orders: Orders CA echo transthorac w con Today Z95.0 - Presence of cardiac pacemaker Coding Level of Care Code Est Pt Level 4 (04278) Diagnoses Cardiac pacemaker in situ Z95.0 Colon cancer C18.9
== END 2023-06-23 15:05 | disposition home or self-care (01) ==
PROVIDERS: PCP Internal Medicine; Visit Provider Internal Medicine Cardiovascular Disease
DX: I44.39 Other atrioventricular block (principal); Z95.0 Presence of cardiac pacemaker; R06.02 Shortness of breath; C18.9 Malignant neoplasm of colon, unspecified
CPT/HCPCS: 99214

== ENCOUNTER → 2023-06-23 23:59 | Outpatient (BNV) | payer MEDICARE, SELFPAY ==
--- NOTE | 2023-08-03 15:18 | MHC.OFFVIS ---
Intake Visit Reasons: remote device check- [facility] Allergies No Known Allergies Allergy (Verified 06/25/23 10:31) [facility] Medical History (Updated 07/07/23 @ 15:41 by Perfecto Marie MD) Pulmonary nodules Asthma with COPD Colon cancer Cardiac pacemaker in situ HTN (hypertension) Second degree AV block Surgical History Hx of colonoscopy Status post placement of cardiac pacemaker Hx of eye surgery Hx of prostatectomy Family History Father No problems noted. Mother Diabetes Social History (Updated 06/25/23 @ 10:31 by Madisyn Naidu) Household Members: Family Housing: House Do you presently have visiting nurse or other home services: No Comment: sss prior to icu Patient Tobacco Use Status: Never used Tobacco Second Hand Smoke Exposure: No service: No Current occupational status: unemployed Office Procedures Cardiac Device Check Cardiac Device Check Details: Permanent pacemaker. Good battery life. V paced 99%. 94183-BV Cardiac Device Check, pacemaker dual lead Procedure code (CPT) selection complete Assessment & Plan Assessment & Plan (1) Cardiac pacemaker in situ: Code(s): Z95.0 - Presence of cardiac pacemaker Category: Medical Plan: Coding Level of Care Code Procedure Only Diagnoses Cardiac pacemaker in situ Z95.0 CPT Codes Cardiac Device Check - Cardiac Device 2: 65167-TF Cardiac Device Check, pacemaker dual lead ([id number])
== END ==
PROVIDERS: PCP Internal Medicine; Visit Provider Internal Medicine Cardiovascular Disease
DX: Z45.018 Encounter for adjustment and management of other part of cardiac pacemaker (principal)
CPT/HCPCS: 93294

== ENCOUNTER → 2023-06-25 10:00 | Outpatient (BNV) | payer MEDICARE, SELFPAY | PROVIDERS: PCP Internal Medicine; Referring Provider Internal Medicine Gastroenterology; Visit Provider Internal Medicine Medical Oncology | DX: C18.9 Malignant neoplasm of colon, unspecified (principal); R91.8 Other nonspecific abnormal finding of lung field | CPT/HCPCS: 99205 ==

== ENCOUNTER → 2023-06-25 12:46 | Outpatient (REF) | payer MEDICARE, SELFPAY ==
--- NOTE | 2023-06-25 12:50 | CA_ITS ---
Transthoracic Echocardiogram Patient (Last, First, Middle): Del Nichols, Gender: Male Date of : 1950 Age: 73 Procedure Date: 06/25/2023 Procedure Type: Transthoracic Echocardiogram Location: OP Height: 177.8 cm Weight: 68.04 kg BSA: 1.85 m2 Heart Rate: 74 bpm BP: 130 / 75 mmHg Diagnostic Sales Specialist: MAKAYLA Referring MD: Garcia Garza MD Symptoms: Z95.0 - Presence of cardiac pacemaker Study Quality: Adequate ECG Rhythm: Sinus Conclusions: - Normal left ventricular size, thickness, systolic function, and wall motion. The visually estimated ejection fraction is between 55-60%. Diastolic function is indeterminate on the basis of available data. Normal global longitudinal strain -18.4%. - Normal right ventricular cavity size and systolic function. There is a pacemaker wire seen in the right ventricle. - Normal right atrial pressure. There is no evidence of pulmonary hypertension. Findings Left Ventricle Normal left ventricular size, thickness, systolic function, and wall motion. The visually estimated ejection fraction is between 55-60%. Diastolic function is indeterminate on the basis of available data. Normal global longitudinal strain -18.4%. Right Ventricle Normal right ventricular cavity size and systolic function. There is a pacemaker wire seen in the right ventricle. Atria The left atrium is normal in size. The right atrium is normal in size. Aortic Valve Normal aortic valve structure and function. There is no aortic valve stenosis. There is no aortic valve regurgitation. Mitral Valve The mitral valve appears normal. There is trace mitral valve regurgitation. There is no mitral valve stenosis. Pulmonic Valve The pulmonic valve is likely normal. Tricuspid Valve Normal tricuspid valve structure. There is trace tricuspid valve regurgitation. Normal right atrial pressure. There is no evidence of pulmonary hypertension. Great Vessels All visible segments of the aorta are normal in size. Venous The inferior vena cava is normal in size and collapses greater than 50% with inspiration. Pericardium/Pleural There is no evidence of pericardial effusion. Prior Study Comparison No significant change compared to prior study dated: 12/20/2020. Measurements 2D Linear Measurements IVSd: 1.00 0.6-0.9/0.6-1.0 cm LVIDd: 3.77 3.9-5.3/4.2-5.9 cm LVIDd Index: 2.04 2.4-3.2/2.2-3.1 cm/m2 LVIDs: 1.85 2.0-3.6 cm LVPWd: 0.82 0.7-1.1 cm LA Diam: 3.10 2.7-3.8/3.0-4.0 cm LAIDs Index: 1.68 1.5-2.3 cm/m2 LV Mass: 125.26 67-162/88-224 g LV Mass Index: 67.71 43-95/49-115 g/m2 LVOT Diam: 1.90 3.0+(-)1.3 cm 2D Systolic Function EF 4C: 60.20 >55% EF 2C: 58.80 >55% EF BiP: 61.60 >55% Mitral Valve MV Pk E: 0.92 MV PK A: 0.91 MV Decel Time: 267.00 E/A: 1.00 E'Lateral: 7.94 E'Medial: 7.29 E/E' Med: 12.60 E/E' Lat: 11.50 PHT: 78.00 MVA PHT: 2.82 Decel [place]: 3.44 Aortic Valve AoV Pk Daniel: 1.66 AoV Mn Daniel: 1.26 AoV VTI: 0.35 AoV Pk Grad: 11.00 Aov Mn Grad: 7.00 MAGALYS Cont.VTI: 1.70 LVOT LVOT Pk Daniel: 1.02 LVOT Mn Daniel: 0.74 LVOT VTI: 0.21 LVOT Pk Grad: 4.00 LVOT Mn Grad: 2.00 LVOT Diam: 1.90 LVOT Area: 2.84 Diastolic Function MV Pk E: 0.92 MV Pk A: 0.91 E/A: 1.00 E'Medial: 7.29 E/E' Med: 12.60 E' Laterial: 7.94 E/E' Lat: 11.50 Right Ventricle TAPSE (mm): 22.30 TVS' Daniel: 14.70 Tricuspid Valve TR Pk Daniel: 2.10 TR Pk Grad: 18.00 RA Press: 3.00 RVSP: 21.00 Great Vessels Aorta Sinus of Valsalva: 3.40 2.0-3.5 cm Ao Asc: 2.70 2.1-3.4 cm Pulmonary Valve PV Pk Daniel: 1.51 Peak PV Grad: 9.00 Updated in Other Vendor System with Status of Final Garcia Garza MD electronically signed on 06/25/2023 3:29:35 PM with status of Final
== END ==
LOC: HO.CARD 12:46
PROVIDERS: Visit Provider Internal Medicine Cardiovascular Disease
DX: Z95.0 Presence of cardiac pacemaker (principal)
CPT/HCPCS: 93306; 93356

== ENCOUNTER → 2023-06-25 12:50 | Outpatient (BNV) | payer MEDICARE, SELFPAY | PROVIDERS: Visit Provider Internal Medicine Cardiovascular Disease | DX: I36.1 Nonrheumatic tricuspid (valve) insufficiency (principal); I34.0 Nonrheumatic mitral (valve) insufficiency; Z95.0 Presence of cardiac pacemaker | CPT/HCPCS: 93306; 93356 ==

== ENCOUNTER 2023-07-07 14:53 | Outpatient (AMB) | payer MEDICARE, SELFPAY ==
[2023-07-07 15:18] VITALS: BMI 22.1
--- NOTE | 2023-07-07 15:18 | A.OFFVIS_ITS ---
Vital Signs 07/07/23 15:18 Height 5 ft 10 in Weight 154 lb 5.177 oz BMI 22.1 Intake Visit Reasons: carole Allergies No Known Allergies Allergy (Verified 06/25/23 10:31) [facility] Medical History (Updated 07/07/23 @ 15:41 by Perfecto Marie MD) Pulmonary nodules Asthma with COPD Colon cancer Cardiac pacemaker in situ HTN (hypertension) Second degree AV block Surgical History Hx of colonoscopy Status post placement of cardiac pacemaker Hx of eye surgery Hx of prostatectomy Family History Father No problems noted. Mother Diabetes Social History (Updated 06/25/23 @ 10:31 by Madisyn Naidu) Household Members: Family Housing: House Do you presently have visiting nurse or other home services: No Comment: sss prior to icu Patient Tobacco Use Status: Never used Tobacco Second Hand Smoke Exposure: No service: No Current occupational status: unemployed Physical Exam Vital Signs: BMI result Body Mass Index 22.1 Office Procedures Spirometry Testing Spirometry Comments: Spirometry done in the office, Dr. Marie has the results results scanned to his chart. 04613- Spirometry Results Reviewed Results Reviewed: SPIROMETRY TODAY, SHOWS SIGNIFICANT IMPROVEMENT FROM SPIROMETRY OF 06/24/2023. FVC 60%, FEV1 55%, FEF 25-75 40%. PATIENT WAS ADVISED TO CONTINUE SYMBICORT 160-4.52 PUFFS B.I.D. Assessment & Plan Assessment & Plan (1) Asthma with COPD: Comment: PATIENT HAS MODERATELY SEVERE ASTHMA/ COPD . WHICH IS MUCH IMPROVED WITH THE USE OF SYMBICORT. HE HARDLY NEEDS TO USE THE PROAIR. Code(s): J44.89 - Other specified chronic obstructive pulmonary disease Category: Medical Plan: ADVISED TO CONTINUE SYMBICORT 160-4.52 PUFFS B.I.D. REGULARLY. DEEP BREATHING EXERCISES AND INCENTIVE SPIROMETRY DEVICE GIVEN FROM THE OFFICE. FROM PULMONARY POINT OF VIEW I THINK HE CAN SAFELY UNDERGO THE : SURGERY. POSTOPERATIVELY MAY BENEFIT FROM USE OF THE IPRATROPIUM/ALBUTEROL UPDRAFTS Q 4-6 HOURS P.R.N.. AND RESTART USING THE SYMBICORT WHEN HE CAN DO THAT. Orders: Orders AMB Spirometry Testing Today J44.89 - Other specified chronic obstructive pulmonary disease Coding Level of Care Code Established Pt Est Pt Level 1 (46263) Patient Type Established Diagnoses Asthma with COPD J44.89 CPT Codes Spirometry - CPT: 16680- Spirometry ([id number]) Comment NURSE VISIT ONLY
== END 2023-07-07 15:54 | disposition home or self-care (01) ==
LOC: HO.HPS 15:07
PROVIDERS: PCP Internal Medicine; Visit Provider Internal Medicine
DX: J44.89 Other specified chronic obstructive pulmonary disease (principal)
CPT/HCPCS: 94010

== ENCOUNTER → 2023-07-07 15:07 | Outpatient (BNVA) | payer MEDICARE, SELFPAY | PROVIDERS: PCP Internal Medicine; Visit Provider Internal Medicine | DX: J44.89 Other specified chronic obstructive pulmonary disease (principal); R91.8 Other nonspecific abnormal finding of lung field | CPT/HCPCS: 94010; 99211 ==

== ENCOUNTER 2023-09-07 15:07 | Outpatient (AMB) | payer MEDICARE, SELFPAY ==
[2023-09-07 15:11] VITALS: BP 118/68; PULSE 86; O2SAT 99; BMI 23.1
--- NOTE | 2023-09-07 15:11 | A.OFFVIS_ITS ---
Vital Signs 09/07/23 15:11 Height 5 ft 10 in Weight 160 lb 14.999 oz BMI 23.1 BP 118/68 Blood Pressure Location Lt brachial Position Sitting Pulse 86 Pulse Source Pulse Oximeter Pulse Oximetry (%) 99 Oxygen Delivery Method Room Air Intake Visit Reasons: f/u Intake Note: pt is here for follow up and states he is feeling good [employer] Solution Architect Required: No Allergies No Known Allergies Allergy (Verified 09/07/23 15:30) Medication List - Last Reconciled 09/07/23 by Perfecto Marie MD albuterol sulfate 90 mcg/actuation 90 mcg inhalation DAILY budesonide-formoterol 160-4.5 mcg/actuation (Symbicort) 2 puffs inhalation BID 30 days cholecalciferol (vitamin D3) (Vitamin D3) 125 mcg PO DAILY inhalational spacing device (PrimeAire spacer) As directed multivitamin 1 tab PO DAILY Do you need a note to return to daycare/school/sports/work: No HPI HPI f/u: Details: THIS 73 YEARS OLD GENTLEMAN HAS RECOVERED FROM COLECTOMY FOR ADENO CARCINOMA OF THE COLON. LUCKILY THERE WAS NO NEED OF ADJUVANT CHEMOTHERAPY. HE IS DOING VERY WELL AT THIS TIME . EATING WELL ABOVE MOVING HIS BOWELS REGULARLY, AND HAS PUT ON SOME WEIGHT. HIS BREATHING HAS REMAINED WELL, HE HAS ONLY OCCASIONAL COUGH, . NO WHEEZING AT ALL HE HAS MILD SHORTNESS OF BREATH WHEN HE WALKS ESPECIALLY UP HILL. HE HAS STOP USING SYMBICORT SINCE LAST 3-4 WEEKS. HE NEVER SMOKED. AND FINDS IT HARD TO KNOW THAT HE DOES HAVE SIGNIFICANT DEGREE OF COPD . [facility] Medical History Pulmonary nodules Asthma with COPD Colon cancer Cardiac pacemaker in situ HTN (hypertension) Second degree AV block Surgical History Hx of colonoscopy Status post placement of cardiac pacemaker Hx of eye surgery Hx of prostatectomy Family History Father No problems noted. Mother Diabetes Social History Household Members: Family Housing: House Do you presently have visiting nurse or other home services: No Comment: sss prior to icu Patient Tobacco Use Status: Never used Tobacco Second Hand Smoke Exposure: No service: No Current occupational status: unemployed Review of Systems Eyes Reports no additional complaints ENT Reports no additional complaints Card Denies chest pain, Denies irregular heart rhythm and Denies lightheadedness Resp Reports as per HPI GI Reports GI cramping ( MILD) and Denies diarrhea Reports no additional complaints and Reports other ( HISTORY OF PREVIOUS PROSTATECTOMY) Musc Reports no additional complaints Skin/Breast Reports system reviewed and no additional complaints, except as documented Neuro Reports no additional complaints Psych Reports no additional complaints Mahendra/Lymph Reports no additional complaints Physical Exam Vital Signs: Last Vital Signs Pulse 86 09/07/23 15:11 BP 118/68 09/07/23 15:11 Pulse Ox 99 09/07/23 15:11 Oxygen Delivery Method Room Air 09/07/23 15:11 BMI result Body Mass Index 23.1 Const General: healthy appearing, comfortable, no acute distress, alert and awake Orientation/consciousness: patient oriented x3 HEENT Head: Yes normal to inspection General nose exam: No nasal polyps present and No nasal discharge present Face and sinus: Yes sinuses nontender Mouth: oropharynx normal Throat: Yes posterior oropharynx normal Eyes General: appearance normal, both eyes and all related structures Neck Neck: Yes normal visual inspection, Yes no lymphadenopathy, Yes trachea midline and Yes no JVD Thyroid: Thyroid normal Chest Chest palpation & inspection: normal inspection of the chest, normal palpation of entire chest wall, no tenderness and Pacemaker present Resp Other: PERCUSSION NOTE IS RESONANT, HE HAS GOOD BREATH SOUNDS ON BOTH SIDES, SLIGHTLY DISTANT AND PROLONGED EXPIRATORY PHASE. NO WHEEZES OR. CREPITATIONS ARE HEARD TODAY Cardio Palpation: normal PMI Rate: regular rate Rhythm: regular rhythm Heart sounds: no gallops and no murmurs Peripheral pulses: Peripheral pulses 2+ throughout GI Palpation (GI): Soft to palpation, nontender, No hepatosplenomegaly present and no masses Auscultation: normal bowel sounds Back/Spine/Pelvis Thoracic/Lumbar Spine: thoracic and lumbar spine normal to inspection Skin General skin exam: no rashes or lesions noted Neuro General: patient oriented x3 and no focal motor deficits Cranial nerves: Yes CN's II-XII intact bilaterally Extrem General: Yes normal to inspection, Yes no clubbing, cyanosis or edema and Yes no calf tenderness Psych Appearance: grossly normal and well kempt Speech and movement: Normal speech and movement present Office Procedures Spirometry Testing Spirometry Comments: Spirometry done in the office, Dr. Marie has the results results scanned to his chart. 17704- Spirometry Results Reviewed Results Reviewed: SPIROMETRY IN THE OFFICE TODAY: FVC 53% FEV1 47%. FEF 25-75 36 % THESE NUMBERS ARE DECREASED AND ALMOST. CLOSE TO THE BASELINE NUMBERS Assessment & Plan Assessment & Plan (1) Asthma with COPD: Comment: PATIENT HAS MODERATELY SEVERE ASTHMA/ COPD . WHICH HAD IMPROVED WITH THE USE OF SYMBICORT. NOW THAT HE HAS NOT USE SYMBICORT FOR THE LAST 3 WEEKS, PULMONARY FUNCTION HAS DETERIORATED . THIS INDICATES THAT HE HE WILL DO BETTER BY USING THE SYMBICORT REGULARLY. Code(s): J44.89 - Other specified chronic obstructive pulmonary disease Category: Medical Plan: DISCUSSED AT LENGTH, I HAVE ADVISED THAT HE SHOULD KEEP ON USING SYMBICORT 160- 4.52 PUFFS B.I.D.. HE CAN USE SYMBICORT 1 OR 2 PUFFS A RESCUE INHALER ALSO IF HE EVER GETS INCREASED SHORTNESS OF BREATH. Orders: Orders AMB Spirometry Testing Today J44.89 - Other specified chronic obstructive pulmonary disease Coding Level of Care Code Tele New Pt Level 3 (54504) Diagnoses Asthma with COPD J44.89 CPT Codes Spirometry - CPT: 89553- Spirometry ([id number])
== END 2023-09-07 15:51 | disposition home or self-care (01) ==
PROVIDERS: PCP Internal Medicine; Visit Provider Internal Medicine
DX: J44.89 Other specified chronic obstructive pulmonary disease (principal)
CPT/HCPCS: 94010; 99213

== ENCOUNTER → 2023-09-07 15:07 | Outpatient (BNVA) | payer MEDICARE, SELFPAY | PROVIDERS: PCP Internal Medicine; Visit Provider Internal Medicine | DX: J44.89 Other specified chronic obstructive pulmonary disease (principal) | CPT/HCPCS: 94010; 99212 ==

== ENCOUNTER 2023-09-08 14:14 | Outpatient (AMB) | payer MEDICARE, SELFPAY ==
[2023-09-08 14:17] VITALS: BP 120/62; PULSE 90; BMI 23.2
--- NOTE | 2023-09-08 14:17 | MHC.OFFVIS ---
Vital Signs 09/08/23 14:17 Height 5 ft 10 in Weight 161 lb 13.109 oz BMI 23.2 BP 120/62 Blood Pressure Location Lt brachial Position Sitting Pulse 90 Pulse Source Pulse Oximeter Intake Visit Reasons: f/up Intake Note: pt is here for a f/up Income Auditor Required: No Accompanied by: Self / Same As Patient Allergies No Known Allergies Allergy (Verified 09/07/23 15:30) Medication List - Last Reconciled 09/08/23 by Garcia Garza MD albuterol sulfate 90 mcg/actuation 90 mcg inhalation DAILY budesonide-formoterol 160-4.5 mcg/actuation (Symbicort) 2 puffs inhalation BID 90 days cholecalciferol (vitamin D3) (Vitamin D3) 125 mcg PO DAILY inhalational spacing device (PrimeAire spacer) As directed multivitamin 1 tab PO DAILY HPI Comments Details: [age] year gentleman who was previously following with Dr. Sultana. He has background history of advanced AV block for which he had permanent pacemaker placement in 2020. He has been pacemaker dependent since then and device interrogation has shown V pacing more than 99% of time. He is here after 2 years from [facility]. He was previously was seeing every 6 months. He was complaining of some fatigue and shortness of breath which led to some blood workup showing anemia. This led to further testing including colonoscopy which has raised concern for colon cancer this point. He has seen General surgery and also plans to take a 2nd opinion from [facility] for resection. He has been getting some shortness of breath which is somewhat explained by anemia. He also was wheezing after recent viral infection and his PFTs had shown concern for asthma and he is on inhalers. He has no chest discomfort. He gets shortness of breath with more than usual activities. Blood pressure is well controlled. Device interrogation was reviewed. 09/08/2023: He is here for follow-up. He was diagnosed with anemia and subsequently was diagnosed with colon cancer which has been resected. He has been doing well since then. He is recovering from surgery. No chest pains or shortness of breath. Blood pressure is well controlled. He is returning back to [facility] over the weekend and will be coming back in 6 months. [facility] Medical History Pulmonary nodules Asthma with COPD Colon cancer Cardiac pacemaker in situ HTN (hypertension) Second degree AV block Surgical History Hx of colonoscopy Status post placement of cardiac pacemaker Hx of eye surgery Hx of prostatectomy Family History Father No problems noted. Mother Diabetes Social History Household Members: Family Housing: House Do you presently have visiting nurse or other home services: No Comment: sss prior to icu Patient Tobacco Use Status: Never used Tobacco Second Hand Smoke Exposure: No service: No Current occupational status: unemployed Review of Systems Const Denies chills, Denies fatigue, Denies fever(s), Denies frequent falls, Denies weakness, Denies weight gain and Denies weight loss ENT Denies dizziness Card Denies chest pain, Denies leg edema, Denies lightheadedness, Denies palpitations, Denies dyspnea and Denies dyspnea on exertion Resp Denies cough, Denies dyspnea and Denies dyspnea on exertion GI Denies hematochezia Musc Denies abnormal gait, Denies muscle weakness, Denies numbness, Denies radiating pain into limb and Denies tingling Neuro Denies abnormal gait, Denies dizziness, Denies frequent falls, Denies numbness, Denies tingling and Denies weakness Endo Denies fatigue and Denies palpitations Physical Exam Vital Signs: Last Vital Signs Pulse 90 09/08/23 14:17 BP 120/62 09/08/23 14:17 BMI result Body Mass Index 23.2 GENERAL APPEARANCE: in no acute distress, pleasant. NECK: no carotid bruit, no jugular venous distention. SKIN: no suspicious lesions, warm and dry. HEART: no murmurs, regular rate and rhythm. LUNGS: Clear to auscultation. ABDOMEN: soft, nontender. EXTREMITIES: no edema. PERIPHERAL PULSES: equal. NEUROLOGIC: No gross deficits, AAO X 3 Assessment & Plan Assessment & Plan (1) HTN (hypertension): Code(s): I10 - Essential (primary) hypertension Category: Medical (2) Cardiac pacemaker in situ: Code(s): Z95.0 - Presence of cardiac pacemaker Category: Medical Plan Pleasant 73 year gentleman with background history of permanent pacemaker placement in the past and hypertension. Blood pressure is well controlled. Pacemaker was interrogated 2 months ago and was functioning fine. Battery life is more than 5 years. He is returning back to [place] and will be coming back in 6 months. We will bring him back at that stage. We will see whether remote transmissions can be done in the meantime. Overall clinically stable. Follow-up in 6 months. Thank you for allowing me to participate in the care of your patient. Please feel free to contact me if you have any questions. Coding Level of Care Code Est Pt Level 3 (07841) Diagnoses HTN (hypertension) I10 Cardiac pacemaker in situ Z95.0
== END 2023-09-08 14:41 | disposition home or self-care (01) ==
PROVIDERS: PCP Internal Medicine; Visit Provider Internal Medicine Cardiovascular Disease
DX: I10 Essential (primary) hypertension (principal); Z95.0 Presence of cardiac pacemaker
CPT/HCPCS: 99213

== ENCOUNTER → 2023-09-08 14:14 | Outpatient (BNVA) | payer MEDICARE, SELFPAY | PROVIDERS: PCP Internal Medicine; Visit Provider Internal Medicine Cardiovascular Disease | DX: I10 Essential (primary) hypertension (principal); Z95.0 Presence of cardiac pacemaker | CPT/HCPCS: 99212 ==

== ENCOUNTER → 2023-09-10 23:59 | Outpatient (BNV) | payer MEDICARE, SELFPAY ==
--- NOTE | 2023-09-13 11:14 | A.OFFVIS_ITS ---
Intake Visit Reasons: Remote device check- [facility] Allergies No Known Allergies Allergy (Verified 09/07/23 15:30) PFSH Medical History Pulmonary nodules Asthma with COPD Colon cancer Cardiac pacemaker in situ HTN (hypertension) Second degree AV block Surgical History Hx of colonoscopy Status post placement of cardiac pacemaker Hx of eye surgery Hx of prostatectomy Family History Father No problems noted. Mother Diabetes Social History Household Members: Family Housing: House Do you presently have visiting nurse or other home services: No Comment: sss prior to icu Patient Tobacco Use Status: Never used Tobacco Second Hand Smoke Exposure: No service: No Current occupational status: unemployed Office Procedures Cardiac Device Check Cardiac Device Check Details: Barr PPM Good battery life. 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 No new alerts. [id number] Cardiac Device Check, pacemaker dual lead Procedure code (CPT) selection complete Assessment & Plan Assessment & Plan (1) Cardiac pacemaker in situ: Code(s): Z95.0 - Presence of cardiac pacemaker Category: Medical Plan Orders: Orders AMB Cardiac Device Follow-up 09/10/23 Z95.0 - Presence of cardiac pacemaker Coding Level of Care Code Procedure Only Diagnoses Cardiac pacemaker in situ Z95.0 CPT Codes Cardiac Device Check - Cardiac Device 2: 13926-CH Cardiac Device Check, pacemaker dual lead ([id number])
== END ==
PROVIDERS: PCP Internal Medicine; Visit Provider Internal Medicine Cardiovascular Disease
DX: Z45.018 Encounter for adjustment and management of other part of cardiac pacemaker (principal)
CPT/HCPCS: 93294

== ENCOUNTER → 2023-12-10 23:59 | Outpatient (BNV) | payer MEDICARE, SELFPAY ==
--- NOTE | 2024-01-03 06:45 | A.OFFVIS_ITS ---
Intake Visit Reasons: Remote device check- [facility] Allergies No Known Allergies Allergy (Verified 09/07/23 15:30) PFSH Medical History Pulmonary nodules Asthma with COPD Colon cancer Cardiac pacemaker in situ HTN (hypertension) Second degree AV block Surgical History Hx of colonoscopy Status post placement of cardiac pacemaker Hx of eye surgery Hx of prostatectomy Family History Father No problems noted. Mother Diabetes Social History Household Members: Family Housing: House Do you presently have visiting nurse or other home services: No Comment: sss prior to icu Patient Tobacco Use Status: Never used Tobacco Second Hand Smoke Exposure: No service: No Current occupational status: unemployed Office Procedures Cardiac Device Check Cardiac Device Check Details: PPM Battery >5 years. Stable thresholds and impedance. 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 No new alerts. [id number] Cardiac Device Check, pacemaker dual lead Procedure code (CPT) selection complete Assessment & Plan Assessment & Plan (1) Cardiac pacemaker in situ: Code(s): Z95.0 - Presence of cardiac pacemaker Category: Medical Plan: Coding Level of Care Code Procedure Only Diagnoses Cardiac pacemaker in situ Z95.0 CPT Codes Cardiac Device Check - Cardiac Device 2: [id number] Cardiac Device Check, pacemaker dual lead ([id number])
== END ==
PROVIDERS: PCP Internal Medicine; Visit Provider Internal Medicine Cardiovascular Disease
DX: Z45.018 Encounter for adjustment and management of other part of cardiac pacemaker (principal)
CPT/HCPCS: 93294

== ENCOUNTER → 2024-06-09 23:59 | Outpatient (BNV) | payer MEDICARE, SELFPAY ==
--- NOTE | 2024-07-02 21:35 | A.OFFVIS_ITS ---
Intake Visit Reasons: Remote Device check- [facility] Allergies No Known Allergies Allergy (Verified 09/07/23 15:30) PFSH Medical History Pulmonary nodules Asthma with COPD Colon cancer Cardiac pacemaker in situ HTN (hypertension) Second degree AV block Surgical History Hx of colonoscopy Status post placement of cardiac pacemaker Hx of eye surgery Hx of prostatectomy Family History Father No problems noted. 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 17550-[id number] Cardiac Device Interrogation, pacemaker Procedure code (CPT) selection complete Assessment & Plan Assessment & Plan (1) Cardiac pacemaker in situ: Code(s): Z95.0 - Presence of cardiac pacemaker Category: Medical Plan Coding Level of Care Code Procedure Only Diagnoses Cardiac pacemaker in situ Z95.0 CPT Codes Cardiac Device Check - Cardiac Device 12: [id number] Cardiac Device Interrogation, pacemaker ([id number])
== END ==
PROVIDERS: PCP Internal Medicine; Visit Provider Internal Medicine Cardiovascular Disease
DX: Z45.018 Encounter for adjustment and management of other part of cardiac pacemaker (principal)
CPT/HCPCS: 93294

== ENCOUNTER 2024-08-07 12:55 | Outpatient (AMB) | payer MEDICARE, SELFPAY ==
[2024-08-07 13:15] VITALS: BP 120/68; PULSE 79; O2SAT 97; BMI 22.3
--- NOTE | 2024-08-07 13:15 | A.OFFVIS_ITS ---
Vital Signs 08/07/24 13:15 Height 5 ft 10 in Weight 155 lb 6.814 oz BMI 22.3 BP 120/68 Blood Pressure Location Lt brachial Position Sitting Pulse 79 Pulse Source Pulse Oximeter Pulse Oximetry (%) 97 Oxygen Delivery Method Room Air Intake Visit Reasons: COPD Intake Note: pt is here for follow up and states he is feeling good today Medical Administrator Required: No Allergies No Known Allergies Allergy (Verified 08/07/24 13:38) Medication List - Last Reconciled 08/07/24 by Perfecto Marie MD albuterol sulfate 90 mcg/actuation 90 mcg inhalation DAILY budesonide-formoterol 160-4.5 mcg/actuation (Symbicort) 2 puffs inhalation BID 90 days cholecalciferol (vitamin D3) (Vitamin D3) 125 mcg PO DAILY inhalational spacing device (PrimeAire spacer) As directed multivitamin 1 tab PO DAILY sodium,potassium,mag sulfates 17.5-3.13-1.6 gram (Suprep Bowel Prep Kit) DILUTE; drink 1/2 at 6-8 pm and half at 11 PM- 1AM Do you need a note to return to daycare/school/sports/work: No HPI HPI COPD: Details: 74 years old gentleman, works in some of the [employer] , for [employer] , .He is here for summer vacation and comes today for yearly follow-up for his bronchial asthma./copd Has been doing very well without any acute exacerbation. He has only mild and occasional cough without much expectoration . He denies any shortness of breath on level ground. He is doing swimming a few times during the week .without any problem Gets mild shortness of breath only when he walks up hill or has to walk fast. He does use albuterol HFA 2 puffs Q 6 hours only p.r.n.. He is out of Symbicort at this time, which he needs to use only p.r.n. PFSH Medical History Pulmonary nodules Asthma with COPD Colon cancer Cardiac pacemaker in situ HTN (hypertension) Second degree AV block Surgical History Hx of colonoscopy Status post placement of cardiac pacemaker Hx of eye surgery Hx of prostatectomy Family History Father No problems noted. Mother Diabetes Social History Household Members: Family Housing: House Do you presently have visiting nurse or other home services: No Comment: sss prior to icu Patient Tobacco Use Status: Never used Tobacco Second Hand Smoke Exposure: No service: No Current occupational status: unemployed Review of Systems Eyes Reports no additional complaints ENT Reports no additional complaints Card Denies chest pain, Denies irregular heart rhythm and Denies lightheadedness Resp Reports as per HPI GI Reports GI cramping ( MILD) and Denies diarrhea Reports no additional complaints and Reports other ( HISTORY OF PREVIOUS PROSTATECTOMY) Musc Reports no additional complaints Skin/Breast Reports system reviewed and no additional complaints, except as documented Neuro Reports no additional complaints Psych Reports no additional complaints Mahendra/Lymph Reports no additional complaints Physical Exam Vital Signs: Last Vital Signs Pulse 79 08/07/24 13:15 BP 120/68 08/07/24 13:15 Pulse Ox 97 08/07/24 13:15 Oxygen Delivery Method Room Air 08/07/24 13:15 BMI result Body Mass Index 22.3 Const General: healthy appearing, comfortable, no acute distress, alert and awake Orientation/consciousness: patient oriented x3 HEENT Head: Yes normal to inspection General nose exam: No nasal polyps present and No nasal discharge present Face and sinus: Yes sinuses nontender Mouth: oropharynx normal Throat: Yes posterior oropharynx normal Eyes General: appearance normal, both eyes and all related structures Neck Neck: Yes normal visual inspection, Yes no lymphadenopathy, Yes trachea midline and Yes no JVD Thyroid: Thyroid normal Chest Chest palpation & inspection: normal inspection of the chest, normal palpation of entire chest wall, no tenderness and Pacemaker present Resp Other: PERCUSSION NOTE IS RESONANT, HE HAS GOOD BREATH SOUNDS ON BOTH SIDES, SLIGHTLY DISTANT AND PROLONGED EXPIRATORY PHASE. NO WHEEZES OR. CREPITATIONS ARE HEARD TODAY Cardio Palpation: normal PMI Rate: regular rate Rhythm: regular rhythm Heart sounds: no gallops and no murmurs Peripheral pulses: Peripheral pulses 2+ throughout GI Palpation (GI): Soft to palpation, nontender, No hepatosplenomegaly present and no masses Auscultation: normal bowel sounds Back/Spine/Pelvis Thoracic/Lumbar Spine: thoracic and lumbar spine normal to inspection Skin General skin exam: no rashes or lesions noted Neuro General: patient oriented x3 and no focal motor deficits Cranial nerves: Yes CN's II-XII intact bilaterally Extrem General: Yes normal to inspection, Yes no clubbing, cyanosis or edema and Yes no calf tenderness Psych Appearance: grossly normal and well kempt Speech and movement: Normal speech and movement present Office Procedures Spirometry Testing Spirometry Comments: In office spirometry completed with results given to Dr Marie. 84187- Spirometry Results Reviewed Results Reviewed: Spirometry today in the office again shows moderately severe obstructive airway disorder, basically unchanged from last year Assessment & Plan Assessment & Plan (1) Asthma with COPD: Comment: PATIENT HAS MODERATELY SEVERE ASTHMA/ COPD . WHICH HAD IMPROVED WITH THE USE OF SYMBICORT. NOW THAT HE HAS NOT USED SYMBICORT SINCE LAST YEAR , HE DENIES ANY INCREASED COUGH OR WHEEZING. HOWEVER SPIROMETRY TEST, CONTINUES TO HAVE MODERATELY SEVERE OBSTRUCTIVE AIRWAY DISORDER. Code(s): J44.89 - Other specified chronic obstructive pulmonary disease Category: Medical Plan: ADVISE HE SHOULD KEEP ALBUTEROL HFA ON HAND AND USE 2 PUFFS Q 6 HOURS P.R.N. IF ANY WHEEZING OR BOUTS OF COUGH. HE NEEDS TO KEEP HE CONTROLLER AGENT SUCH SYMBICORT OR ADVAIR ON HAND TO USE IF HE HAS ANY ACUTE SYMPTOMS, THAT ARE NOT TREATED WITH P.R.N. USE OF ALBUTEROL. (2) Pulmonary nodules: Comment: CT SCAN AT [facility], SHOWS CENTRI LOBULAR EMPHYSEMA. AND A FEW SMALL NODULES 3-4 MM IN SIZE IN LEFT LOWER LOBE. THERE IS 4 MM SUB PLEURAL NODULE IN RIGHT LOWER LOBE POSTERI EVETTE AND AN ELONGATED 7 MM. PERIFISSURAL NODULE ON THE RIGHT SIDE MOST LIKELY A LYMPH NODE NO MEDIASTINAL OR HILAR LYMPHADENOPATHY IS NOTED I THINK MOST LIKELY THESE NODULES OR BENIGN AND NONSPECIFIC. HE IS NONSMOKER SO HAS RELATIVELY LOW RISK FOR PULMONARY NEOPLASM. Code(s): R91.8 - Other nonspecific abnormal finding of lung field Category: Medical Plan: DOES NOT NEED TO HAVE ANNUAL CT SCAN, BUT WILL ORDER NEEDED. Orders: Orders AMB Spirometry Testing Today J44.89 - Other specified chronic obstructive pulmonary disease Medications: New albuterol sulfate 90 mcg/actuation (Ventolin HFA) 2 puffs inhalation Q4-6H PRN 8.5 grams 3RF shortness of breath or wheezing 30 days Changed From budesonide-formoterol 160-4.5 mcg/actuation (Symbicort) 2 puffs inhalation BID 90 days 10.2 grams 3RF ASTHMA/COPD To budesonide-formoterol 160-4.5 mcg/actuation (Symbicort) 2 puffs inhalation BID 10.2 grams 3RF ASTHMA/COPD 30 days Coding Level of Care Code Est Pt Level 3 (60340) Diagnoses Asthma with COPD J44.89 Pulmonary nodules R91.8 CPT Codes Spirometry - CPT: 36887- Spirometry ([id number])
== END 2024-08-07 16:13 | disposition home or self-care (01) ==
LOC: HO.HPS 12:55
PROVIDERS: PCP Internal Medicine; Visit Provider Internal Medicine
DX: J44.89 Other specified chronic obstructive pulmonary disease (principal); R91.8 Other nonspecific abnormal finding of lung field
CPT/HCPCS: 94010; 99213

== ENCOUNTER → 2024-08-07 12:55 | Outpatient (BNVA) | payer MEDICARE, SELFPAY | PROVIDERS: PCP Internal Medicine; Visit Provider Internal Medicine | DX: J44.89 Other specified chronic obstructive pulmonary disease (principal); R91.8 Other nonspecific abnormal finding of lung field | CPT/HCPCS: 94010; 99212 ==

== ENCOUNTER 2024-08-10 06:23 | Day surgery (SDC) | payer MEDICARE, SELFPAY ==
[2024-08-08 13:58] VITALS: BMI 21.5
--- NOTE | 2024-08-09 11:51 | HO.ANESPROP2 ---
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 He has been pacemaker dependent since then and device interrogation has shown V pacing more than 99% of time. Last office visit 08/2023 Colon ca s/p resection Follows [facility] [place] pulmo for COPD. Stable at 07/2024 with rare inhaler use PMF Active Problems Active Problems: All Active Problems Pulmonary nodules (Acute) Asthma with COPD (Acute) Colon cancer (Acute) Colonic mass (Acute) Cardiac pacemaker in situ (Acute) HTN (hypertension) (Acute) Past Medical History Medical History Pulmonary nodules Asthma with COPD Colon cancer Cardiac pacemaker in situ HTN (hypertension) Second degree AV block Family History Family History Father No problems noted. Mother Diabetes Family history of problems with anesthesia: No Surgical History Surgical History Hx of colonoscopy Status post placement of cardiac pacemaker Hx of eye surgery Hx of prostatectomy History of Problems with Anesthesia: No Social History Social History Household Members: Family Housing: House Are you a primary health and social care teacher to a significant other at home: No Do you presently have visiting nurse or other home services: No Comment: sss prior to icu Patient Tobacco Use Status: Never used Tobacco Second Hand Smoke Exposure: No Use of substances other than those prescribed or required for medical reasons: No Have you been hit, kicked, punched, or otherwise hurt by someone within the past year? If so, by whom?: No Are you DNR?: No Advance Directives: No Advance Directives Information Provided: Yes Advance Directives on File: No Poor oral hygiene: No service: No Current occupational status: unemployed Meds Allergies Allergy/AdvReac Type Severity Reaction Status Date / Time No Known Allergies Allergy Verified 08/07/24 13:38 Home Medications ?Medication ?Instructions ?Recorded ?Confirmed ?Last Taken ?Type albuterol sulfate 90 mcg/actuation 90 mcg inhalation DAILY 04/29/24 06/26/25 Unknown History aerosol inhaler multivitamin 1 tab PO DAILY 06/23/23 08/10/24 Unknown History Exam Height,Weight and Vital Signs: Height 5 ft 10 in Weight 68 kg Narrative Narrative: Cardiac Device Check 06/2024 Details: PPM Good battery life PLUMBER PIPE FITTING>99% No new alerts. [id number] Cardiac Device Interrogation, pacemaker Procedure code (CPT) selection complete Assessment and Plan Assessment Anesthesia Assessment: Chart Reviewed Final Anesthetic Review Family History of Problems with Anesthesia: No History of Problems with Anesthesia: No Documented by User: Juan Carlos Connell MD 08/10/24 07:26 [facility] Past Medical History Medical History Pulmonary nodules Asthma with COPD Colon cancer Cardiac pacemaker in situ HTN (hypertension) Second degree AV block Family History Family History Father No problems noted. Mother Diabetes Surgical History Surgical History Hx of colonoscopy Status post placement of cardiac pacemaker Hx of eye surgery Hx of prostatectomy Social History Social History Household Members: Family Housing: House Are you a primary health and social care teacher to a significant other at home: No Do you presently have visiting nurse or other home services: No Comment: sss prior to icu Patient Tobacco Use Status: Never used Tobacco Second Hand Smoke Exposure: No Use of substances other than those prescribed or required for medical reasons: No Have you been hit, kicked, punched, or otherwise hurt by someone within the past year? If so, by whom?: No Are you DNR?: No Advance Directives: No Advance Directives Information Provided: Yes Advance Directives on File: No Poor oral hygiene: No service: No Current occupational status: unemployed Meds Allergies Allergy/AdvReac Type Severity Reaction Status Date / Time No Known Allergies Allergy Verified 08/07/24 13:38 Home Medications ?Medication ?Instructions ?Recorded ?Confirmed ?Last Taken ?Type albuterol sulfate 90 mcg/actuation 90 mcg inhalation DAILY 06/14/23 08/10/24 Unknown History aerosol inhaler multivitamin 1 tab PO DAILY 06/23/23 08/10/24 Unknown History Exam Airway Mallampati Class: I TM Dist: <=3cm Neck ROM: Full Loose/Missing/Broken Teeth: No Heart: ok Lungs: ok Assessment and Plan Assessment Anesthesia Assessment: Anesthesia Plan Discussed Final Anesthetic Review NPO: Yes ASA Class: III Final Preanesthetic Review: No Changes in Pt Med Stat, Meds/Allgs Chart Reviewed, Consent Obtained/Reviewed and Anes Risks/Benef Reviewed Patient Risk: Intermediate Procedure Risk: Low Anesthetic Plan Anesthetic Plan: MAC: and Agree w/ Assess. and Plan Disposition: Standard PACU
[2024-08-10 06:59] VITALS: BP 143/76; PULSE 82; RESP 16; TEMP 36.3; O2SAT 98
[2024-08-10] MEDS: Lactated Ringers 1,000 ML 100 ML IVCONT (07:00)
--- NOTE | 2024-08-10 07:32 | MHC.SHP ---
Pre-Procedural Eval Section A - 24 Hr Update-Section A only Date of Service: 08/10/24 Section B - Complete if H&P > 30 days Chief Complaint: SCREENING,HX MALIGNANT NEOPLASM Relevant Family History (Specify if Yes): No Relevant Social History: None Present Medications: see Short Stay Collaborative assessment Medical History: Significant History (Pulmonary nodules Asthma with COPD Colon cancer Cardiac pacemaker in situ HTN (hypertension) Second degree AV block) History of Previous Operations: Relevant previous surgery/procedure and date(s) (Hx of colonoscopy Status post placement of cardiac pacemaker Hx of eye surgery Hx of prostatectomy) Allergies: Allergies Allergy/AdvReac Type Severity Reaction Status Date / Time No Known Allergies Allergy Verified 08/07/24 13:38 Review of Systems Sugical H&P ROS: Negative: Constitution, Cardiovascular, Respiratory, Neurological, Psychiatric, Hem-Onc, Allergic/Immunologic, Gastrointestinal, Genitourinary, Musculoskeletal, Integumentary, Endocrine and Eyes/Ears/Nose/Throat Exam Surgical H&P Exam: Normal: HEENT, Normal: Heart, Normal: Lungs, Normal: Extremities, Normal: Abdomen, Normal: Skin and Normal: Neurological Plan Diagnosis/Plan: Unchanged I have reviewed the history and physical and performed a pertinent physical examination on my patient. No changes have occurred unless specified. Time Spent With Patient Time: Total time managing care of this patient today ____ minutes.
--- NOTE | 2024-08-10 07:54 | HO.OPN-COLON ---
Colonoscopy Operative Note Operative Note Date of Service: 08/10/24 Narrative: Operative Information Procedure Description: Colonoscopy Indication: hx of colon cancer Anesthesia: MAC COLONOSCOPY Instrument: Olympus variable stiffness pediatric scope 190L Colonoscopy Monitoring: Vital signs and clinical assessment, continuous EKG monitoring, Pulse oximetry, Carbon Dioxide monitoring and blood pressure monitoring were done throughout the procedure. Colon withdrawal time was 12 minutes. Procedure: The patient was placed in the left lateral decubitis position and pre-procedure medications were administered. After a digital rectal examination of the ano-rectum, the video colonoscope was inserted into the rectum and advanced through the colon to the cecum/TI. The colonoscope was slowly withdrawn in a retrograde panoramic fashion and the colon mucosa was carefully examined including a retroflexed view of the rectum. Findings and interventions are described below. Procedure Difficulty: easy Findings: ileo colonic anastomosis noted, there was a rim of mild inflammation around the junction with some edema, bx taken from anastomosis as well as the jasper terminal ileum and from left colon and rectum (stool also collected for stool lactoferrin and PCR testing) Transverse Colon -normal Descending Colon:normal Sigmoid Colon: normal Rectum: Retroflexion with small to medium internal hemorrhoids seen, grade I Anorectum - normal Intervention: cold forceps Colon preparation: [place] Bowel Preparation Scale Right colon; 2 Transverse colon: 2 Left colon; 2 (0 = Unprepared colon segment with mucosa not seen due to solid stool that cannot be cleared. 1 = Portion of mucosa of the colon segment seen, but other areas of the colon segment not well seen due to staining, residual stool and/or opaque liquid. 2 = Minor amount of residual staining, small fragments of stool and/or opaque liquid, but mucosa of colon segment seen well. 3 = Entire mucosa of colon segment seen well with no residual staining, small fragments of stool or opaque liquid) Impression and Post Procedure Diagnosis: non specific colitis internal hemorrhoids Plan: High fiber diet leaflet Avoid straining at stool, epsom salts and sitz bath, anusol supps or cream Repeat Colonoscopy in 1-2 years or earlier if clinically indicated may need CT e depending on results of bx check nsaid hx use Above findings were reviewed with the patient and relevant handouts were provided if indicated.
[2024-08-10 08:02] VITALS: BP 80/46; PULSE 65; RESP 14; TEMP 36.4; O2SAT 95
[2024-08-10 08:17] VITALS: BP 128/71; PULSE 73; RESP 16; O2SAT 98
[2024-08-10 08:31] VITALS: BP 132/69; PULSE 70; RESP 18; TEMP 36.9; O2SAT 98
[2024-08-10 09:06] LABS: CDiff Gene PCR NEGATIVE (Negative)
[2024-08-10 11:11] LABS: Adenovirus F 40/41 Not Detected (Not Detect.); Astrovirus Not Detected (Not Detect.); Campylobacter Not Detected (Not Detect.); Cryptosporidium Not Detected (Not Detect.); Cyclospora cayetanensis Not Detected (Not Detect.); E. coli EAEC Detected (Not Detect.); E. coli EPEC Not Detected (Not Detect.); E. coli ETEC Not Detected (Not Detect.); E. coli STEC Not Detected (Not Detect.); Entamoeba histolytica Not Detected (Not Detect.); Giardia lamblia Not Detected (Not Detect.); Norovirus GI/GII Not Detected (Not Detect.); Plesiomonas shigelloides Not Detected (Not Detect.); Rotavirus A Not Detected (Not Detect.); Salmonella Not Detected (Not Detect.); Sapovirus Not Detected (Not Detect.); Shigella sp./EIEC Not Detected (Not Detect.); Vibrio Not Detected (Not Detect.); Vibrio Cholerae Not Detected (Not Detect.); Yersinia enterocolitica Not Detected (Not Detect.)
[2024-08-16 23:19] LABS: Lactoferrin, Fecal, Quant. <6.25 mcg/mL (<7.25)
== END 2024-08-10 08:51 | disposition home or self-care (01) ==
PROVIDERS: PCP Internal Medicine; Visit Provider Internal Medicine Gastroenterology
PROC: 0DJD8ZZ Inspection of Lower Intestinal Tract, Via Natural or Artificial Opening Endoscopic (ICD-10-PCS; CPT 45378; principal; 2024-08-10 07:30)
DX: K63.89 Other specified diseases of intestine (principal); K52.9 Noninfective gastroenteritis and colitis, unspecified; K51.519 Left sided colitis with unspecified complications; K64.0 First degree hemorrhoids; Z85.038 Personal history of other malignant neoplasm of large intestine; R19.7 Diarrhea, unspecified; I10 Essential (primary) hypertension; D50.9 Iron deficiency anemia, unspecified; J44.9 Chronic obstructive pulmonary disease, unspecified; R91.8 Other nonspecific abnormal finding of lung field; I44.1 Atrioventricular block, second degree; Z95.0 Presence of cardiac pacemaker
CPT/HCPCS: 45380; 83631; 87493; 87507; 88305; J2003; J2704

== ENCOUNTER → 2024-08-10 06:23 | Outpatient (BNV) | payer MEDICARE, SELFPAY | PROVIDERS: PCP Internal Medicine; Visit Provider Internal Medicine Gastroenterology | DX: Z12.11 Encounter for screening for malignant neoplasm of colon (principal); Z85.038 Personal history of other malignant neoplasm of large intestine; K52.9 Noninfective gastroenteritis and colitis, unspecified; K64.0 First degree hemorrhoids | CPT/HCPCS: 43239 ==

== ENCOUNTER 2024-08-21 09:55 | Outpatient (AMB) | payer MEDICARE, SELFPAY ==
--- NOTE | 2024-08-21 10:10 | MHC.OFFVIS ---
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: No Accompanied by: Self / Same As Patient Allergies No Known Allergies Allergy (Verified 08/07/24 13:38) Medication List - Last Reconciled 08/21/24 by Garcia Garza MD albuterol sulfate 90 mcg/actuation 90 mcg inhalation DAILY albuterol sulfate 90 mcg/actuation (Ventolin HFA) 2 puffs inhalation Q4-6H PRN 30 days budesonide-formoterol 160-4.5 mcg/actuation (Symbicort) 2 puffs inhalation BID 30 days cholecalciferol (vitamin D3) (Vitamin D3) 125 mcg PO DAILY inhalational spacing device (PrimeAire spacer) As directed multivitamin 1 tab PO DAILY HPI Comments Details: 74-year-old gentleman who was previously following with Dr. Sultana. He has background history of advanced AV block for which he had permanent pacemaker placement in 2020. He has been pacemaker dependent since then and device interrogation has shown V pacing more than 99% of time. He is here after 2 years from [facility]. He was previously was seeing every 6 months. He was complaining of some fatigue and shortness of breath which led to some blood workup showing anemia. This led to further testing including colonoscopy which has raised concern for colon cancer this point. He has seen General surgery and also plans to take a 2nd opinion from [facility] for resection. He has been getting some shortness of breath which is somewhat explained by anemia. He also was wheezing after recent viral infection and his PFTs had shown concern for asthma and he is on inhalers. He has no chest discomfort. He gets shortness of breath with more than usual activities. Blood pressure is well controlled. Device interrogation was reviewed. 09/08/2023: He is here for follow-up. He was diagnosed with anemia and subsequently was diagnosed with colon cancer which has been resected. He has been doing well since then. He is recovering from surgery. No chest pains or shortness of breath. Blood pressure is well controlled. He is returning back to [facility] over the weekend and will be coming back in 6 months. 08/21/2024: He is here for follow-up. He has been doing well. He has been swimming without any chest discomfort shortness of breath. No symptoms to report on follow-up. [facility] Medical History Pulmonary nodules Asthma with COPD Colon cancer Cardiac pacemaker in situ HTN (hypertension) Second degree AV block Surgical History Hx of colonoscopy Status post placement of cardiac pacemaker Hx of eye surgery Hx of prostatectomy Family History Father No problems noted. Mother Diabetes Social History Household Members: Family Housing: House Are you a primary assurance services manager health care to a significant other at home: No Do you presently have visiting nurse or other home services: No Comment: sss prior to icu Patient Tobacco Use Status: Never used Tobacco Second Hand Smoke Exposure: No service: No Current occupational status: unemployed Review of Systems Const Denies chills, Denies fatigue, Denies fever(s), Denies frequent falls, Denies weakness, Denies weight gain and Denies weight loss ENT Denies dizziness Card Denies chest pain, Denies leg edema, Denies lightheadedness, Denies palpitations, Denies dyspnea and Denies dyspnea on exertion Resp Denies cough, Denies dyspnea and Denies dyspnea on exertion GI Denies hematochezia Musc Denies abnormal gait, Denies muscle weakness, Denies numbness, Denies radiating pain into limb and Denies tingling Neuro Denies abnormal gait, Denies dizziness, Denies frequent falls, Denies numbness, Denies tingling and Denies weakness Endo Denies fatigue and Denies palpitations Physical Exam Vital Signs: Last Vital Signs Pulse 91 08/21/24 10:11 BP 130/62 08/21/24 10:11 BMI result Body Mass Index 22.5 GENERAL APPEARANCE: in no acute distress, pleasant. NECK: no carotid bruit, no jugular venous distention. SKIN: no suspicious lesions, warm and dry. HEART: no murmurs, regular rate and rhythm. LUNGS: Clear to auscultation. ABDOMEN: soft, nontender. EXTREMITIES: no edema. PERIPHERAL PULSES: equal. NEUROLOGIC: No gross deficits, AAO X 3 Assessment & Plan Assessment & Plan (1) HTN (hypertension): Code(s): I10 - Essential (primary) hypertension Category: Medical (2) Cardiac pacemaker in situ: Code(s): Z95.0 - Presence of cardiac pacemaker Category: Medical Plan Pleasant 74 year gentleman with background history of permanent pacemaker placement in the past and hypertension. Blood pressure is well controlled. Device interrogation in May showed normally functioning pacemaker with battery life close to 5 years. He continues to be active and has no exertional symptoms. I have reassured him for now. He will see us back during his next visit to [place] Thank you for allowing me to participate in the care of your patient. Please feel free to contact me if you have any questions. Coding Level of Care Code Est Pt Level 3 (09161) Diagnoses HTN (hypertension) I10 Cardiac pacemaker in situ Z95.0
[2024-08-21 10:11] VITALS: BP 130/62; PULSE 91; BMI 22.5
== END 2024-08-21 10:27 | disposition home or self-care (01) ==
LOC: HO.HCS 09:55
PROVIDERS: PCP Internal Medicine; Visit Provider Internal Medicine Cardiovascular Disease
DX: I10 Essential (primary) hypertension (principal); Z95.0 Presence of cardiac pacemaker
CPT/HCPCS: 99213

== ENCOUNTER → 2024-08-21 09:55 | Outpatient (BNVA) | payer MEDICARE, SELFPAY | PROVIDERS: PCP Internal Medicine; Visit Provider Internal Medicine Cardiovascular Disease | DX: I10 Essential (primary) hypertension (principal); Z95.0 Presence of cardiac pacemaker | CPT/HCPCS: 99212 ==

== ENCOUNTER 2024-09-05 14:04 | Outpatient (AMB) | payer MEDICARE, SELFPAY ==
--- NOTE | 2024-09-05 14:08 | MHC.OFFVIS ---
Vital Signs 09/05/24 14:09 Height 5 ft 10 in Weight 160 lb 14.999 oz BMI 23.1 BP 126/61 Blood Pressure Location Lt brachial Position Sitting Pulse 82 Pulse Source Pulse Oximeter Pulse Oximetry (%) 96 Oxygen Delivery Method Room Air Intake Visit Reasons: asthma/copd Intake Note: f/u Allergies No Known Allergies Allergy (Verified 09/05/24 14:15) Medication List - Last Reconciled 09/05/24 by Perfecto Marie MD albuterol sulfate 90 mcg/actuation 90 mcg inhalation DAILY albuterol sulfate 90 mcg/actuation (Ventolin HFA) 2 puffs inhalation Q4-6H PRN 30 days budesonide-formoterol 160-4.5 mcg/actuation (Symbicort) 2 puffs inhalation BID 30 days cholecalciferol (vitamin D3) (Vitamin D3) 125 mcg PO DAILY inhalational spacing device (PrimeAire spacer) As directed multivitamin 1 tab PO DAILY HPI HPI asthma/copd: Details: 74 years old gentleman is here for follow-up after 4 weeks. He is being treated for asthma/COPD, moderately severe. He is nonsmoker. Has used Symbicort 160-4.52 puffs b.i.d. only for about a week and now he is using albuterol p.r.n.. Gets short of breath if he walks uphill or climbs stairs . Now for the past few days he is having feeling of some mucus in the throat that he has hard time to clear. He is also complaining of fullness in the neck and worries about his thyroid gland. [facility] Medical History (Updated 09/05/24 @ 15:12 by Perfecto Marie MD) Thyroid adenoma Thyromegaly Pulmonary nodules Asthma with COPD Colon cancer Cardiac pacemaker in situ HTN (hypertension) Second degree AV block Surgical History Hx of colonoscopy Status post placement of cardiac pacemaker Hx of eye surgery Hx of prostatectomy Family History Father No problems noted. Mother Diabetes Social History Household Members: Family Housing: House Are you a primary director of career resources to a significant other at home: No Do you presently have visiting nurse or other home services: No Comment: sss prior to icu Patient Tobacco Use Status: Never used Tobacco Second Hand Smoke Exposure: No service: No Current occupational status: unemployed Review of Systems Eyes Reports no additional complaints ENT Reports no additional complaints Card Denies chest pain, Denies irregular heart rhythm and Denies lightheadedness Resp Reports as per HPI GI Reports GI cramping ( MILD) and Denies diarrhea Reports no additional complaints and Reports other ( HISTORY OF PREVIOUS PROSTATECTOMY) Musc Reports no additional complaints Skin/Breast Reports system reviewed and no additional complaints, except as documented Neuro Reports no additional complaints Psych Reports no additional complaints Mahendra/Lymph Reports no additional complaints Physical Exam Vital Signs: Last Vital Signs Pulse 82 09/05/24 14:09 BP 126/61 09/05/24 14:09 Pulse Ox 96 09/05/24 14:09 Oxygen Delivery Method Room Air 09/05/24 14:09 BMI result Body Mass Index 23.1 Const General: healthy appearing, comfortable, no acute distress, alert and awake Orientation/consciousness: patient oriented x3 HEENT Head: Yes normal to inspection General nose exam: No nasal polyps present and No nasal discharge present Face and sinus: Yes sinuses nontender Mouth: oropharynx normal Throat: Yes posterior oropharynx normal Eyes General: appearance normal, both eyes and all related structures Neck Neck: Yes normal visual inspection, Yes no lymphadenopathy, Yes trachea midline and Yes no JVD Thyroid: abnormal thyroid (small nodular lesion rt lobe ) Chest Chest palpation & inspection: normal inspection of the chest, normal palpation of entire chest wall, no tenderness and Pacemaker present Resp Other: PERCUSSION NOTE IS RESONANT, HE HAS GOOD BREATH SOUNDS ON BOTH SIDES, SLIGHTLY DISTANT AND PROLONGED EXPIRATORY PHASE. NO WHEEZES OR. CREPITATIONS ARE HEARD TODAY Cardio Palpation: normal PMI Rate: regular rate Rhythm: regular rhythm Heart sounds: no gallops and no murmurs Peripheral pulses: Peripheral pulses 2+ throughout GI Palpation (GI): Soft to palpation, nontender, No hepatosplenomegaly present and no masses Auscultation: normal bowel sounds Back/Spine/Pelvis Thoracic/Lumbar Spine: thoracic and lumbar spine normal to inspection Skin General skin exam: no rashes or lesions noted Neuro General: patient oriented x3 and no focal motor deficits Cranial nerves: Yes CN's II-XII intact bilaterally Extrem General: Yes normal to inspection, Yes no clubbing, cyanosis or edema and Yes no calf tenderness Psych Appearance: grossly normal and well kempt Speech and movement: Normal speech and movement present Assessment & Plan Assessment & Plan (1) Thyroid adenoma: Comment: Small nodularity of the right lobe of thyroid Code(s): D34 - Benign neoplasm of thyroid gland Category: Medical Plan: Ultrasound ordered at the patient , s request (2) Asthma with COPD: Comment: PATIENT HAS MODERATELY SEVERE ASTHMA/ COPD . WHICH HAD IMPROVED WITH THE USE OF SYMBICORT. NOW HE IS NOT USING SYMBICORT REGULARLY. SEEMS TO BE DOING WELL EXCEPT FOR MILD COUGH AND FEELING OF SOME MUCUS IN THE THROAT. Code(s): J44.89 - Other specified chronic obstructive pulmonary disease Category: Medical Plan: ADVISED TO USE ALBUTEROL 2 PUFFS Q 6 HOURS P.R.N.. ( HE HAS IT FROM [facility]) KEEPS SYMBICORT ON HAND AND IF THERE IS ANY WORSENING OF COUGH WHEEZING OR SHORTNESS OF BREATH THEN START USING SYMBICORT TURBUHALER ( HE HAS IT FROM [facility] ) 1 INHALATION B.I.D. ALWAYS GARGLE THE THROAT THOROUGHLY AFTER USING THE INHALER PLENTY OF FLUIDS IF THERE IS FEELING OF MUCUS IN THE NASOPHARYNX THEN MAY USE SALINE NASAL SPRAY 2 OR 3 TIMES A DAY. *GIVEN HIM A PEAK FLOW METER FROM THE OFFICE, TODAY PEAK FLOW IS 300 L INSTRUCTIONS GIVEN THAT IF PEAK FLOW FALLS BELOW 250 HE SHOULD START USING THE SYMBICORT MORE REGULARLY (3) Pulmonary nodules: Comment: CT SCAN AT [facility], SHOWS CENTRI LOBULAR EMPHYSEMA. AND A FEW SMALL NODULES 3-4 MM IN SIZE IN LEFT LOWER LOBE. THERE IS 4 MM SUB PLEURAL NODULE IN RIGHT LOWER LOBE POSTERI EVETTE AND AN ELONGATED 7 MM. PERIFISSURAL NODULE ON THE RIGHT SIDE MOST LIKELY A LYMPH NODE NO MEDIASTINAL OR HILAR LYMPHADENOPATHY IS NOTED I THINK MOST LIKELY THESE NODULES OR BENIGN AND NONSPECIFIC. HE IS NONSMOKER SO HAS RELATIVELY LOW RISK FOR PULMONARY NEOPLASM. Code(s): R91.8 - Other nonspecific abnormal finding of lung field Category: Medical Plan: CONTINUE TO WATCH, NO NEED OF CT SCAN THIS HE. Orders: Orders US thyroid Today E01.0 - Iodine-deficiency related diffuse (endemic) goiter Coding Level of Care Code Est Pt Level 3 (58529) Diagnoses Thyroid adenoma D34 Asthma with COPD J44.89 Pulmonary nodules R91.8
[2024-09-05 14:09] VITALS: BP 126/61; PULSE 82; O2SAT 96; BMI 23.1
--- OUTSIDE RECORDS SUMMARY | 2024-09-05 15:23 | XMS_ITS | Encounter Summary ---
Author Organization [facility] Address [address] [place] [address] Phone Care Team Providers Care Operations Officer Name Role Phone Ashwin Cannon MD Primary Care Provider Ashwin Cannon MD Unavailable [phone] Cyril Aguilar MD, MPH Unavailable [phone] Encounter Details Date Type Department Care Team (Late st Contact Info) Description 06/30/2024 Hospital Encounter [facility] [address] [place] [address] Vern Rod MD, MPH 75 [facility]-3rd [place] [address] [email or web address] Social History Tobacco Use Types Packs/Day Years Used Date Smoking Tobacco: Never Smokeless Tobacco: Never Child or Family Care Answer Date Record ed Do you have problems with on e of the following making it difficult for you to work, study, or receive health care? No 07/24/2023 Education Answer Date Recorded Are you interested in more education? Not on rashida e 06/28/2023 Are you concerned about learning? Not on file 06/28/2023 No 06/28/2023 No 06/28/2023 Food Answer Date Recorded Within the past 6 months we worried whether our food would run out before we got money to buy more. Never True 07/24/2023 Within the past 6 months the food we bought just didn't last and we didn't have enough money to get more. Never True Residential Stability Answer Date Recor ded What is your housing situation today? I have vanessa mandel 07/24/2023 How many times have you move d in the past 12 months? Zero (I did not move) 07/24/2023 Paying for Meds Answer Date Recorded Do you have trouble paying for medicines? Yes 07/24/2023 Paying Utility Bills Answer Date Record ed Do you have trouble paying your heating or elect ricity bill? No 07/24/2023 Transportation Answer Date Recorded Has the lack of transportati on kept you from medical appointments or from getting medications? No 07/24/2023 Digital Access Answer Date Recorded No 06/28/2023 No 06/28/2023 Reliable internet access at home? Not on file 06/28/2023 Device with a working camera? Not on file Intimate Partner Violence Answer Date R ecorded Are you denied basic needs s uch as food, clothing, or medical care? No 07/13/2023 In the past 12 months have y ou been in a relationship with a person who hurts, threatens, or tries to control you? No 07/13/2023 Are you denied basic needs s uch as food, clothing, or medical care? No 07/13/2023 In the past 12 months have y ou been in a relationship with a person who hurts, threatens, or tries to control you? No 07/13/2023 Sex and Gender Information Value Date Recorded Sex Assigned at Male 06/28/2023 10:06 AM EDT Legal Sex Male 10:54 AM EDT Gender Identity Male 06/28/2023 10:06 AM EDT Sexual Orientation Straight 06/28/2023 10 :06 AM EDT documented as of this encounter Plan of Treatment Upcoming Encounters Date Type Department Care Team (Late st Contact Info) Description 08/22/2024 Procedure Pass [place], [place] [address] [address] 08/22/2024 Procedure Pass Jeanette-[address] [address] 08/28/2025 6:30 AM EDT Blood Draw Laboratory Services, [address] [address] Cyril Aguilar MD, MPH [address] [place] [phone] [email or web address] 08/28/2025 8:10 AM EDT Appointment [address] [address] Cyril Aguilar MD, MPH [address] [place] [phone] [email or web address] 08/28/2025 10:00 AM EDT [facility], [address] [address] Cyril Aguilar MD, MPH [address] [place] [phone] [email or web address] documented as of this encounter Visit Diagnoses Not on filedocumented in this encounter Care Teams Operations Officer Relationship Specialty Start Date End Date Ashwin Cannon MD [address] [facility] [employer] [address] [place] [address] PCP - General Internal Medicine 06/10/23 Ashwin Cannon MD [address] [facility] [employer] [address] [place] [address] Internal Medicine 06/28/23 Cyril Aguilar MD, MPH [address] [place] [phone] [email or web address] 06/28/23 documented as of this encounter Additional Source Comments The information contained in this document represents components of the legal health record. It is not the complete legal health record.[facility]
== END 2024-09-05 14:42 | disposition home or self-care (01) ==
LOC: HO.HPS 14:04
PROVIDERS: PCP Internal Medicine; Visit Provider Internal Medicine
DX: D34 Benign neoplasm of thyroid gland (principal); J44.89 Other specified chronic obstructive pulmonary disease; R91.8 Other nonspecific abnormal finding of lung field
CPT/HCPCS: 99213

== ENCOUNTER → 2024-09-05 14:04 | Outpatient (BNVA) | payer MEDICARE, SELFPAY | PROVIDERS: PCP Internal Medicine; Visit Provider Internal Medicine | DX: D34 Benign neoplasm of thyroid gland (principal); J44.89 Other specified chronic obstructive pulmonary disease; R91.8 Other nonspecific abnormal finding of lung field | CPT/HCPCS: 99212 ==

== ENCOUNTER 2024-09-07 13:48 | Outpatient (REF) | payer MEDICARE, SELFPAY ==
--- NOTE | ~2024-09-07 | US_ITS ---
EXAMINATION: US THYROID CLINICAL INFORMATION: Iodine deficiency. COMPARISON: None available. TECHNIQUE: Linear transducer grayscale and color Doppler examination with attention to the region of the thyroid. FINDINGS: SIZE: Measurements of the thyroid lobes and nodules are given in sagittal, anteroposterior and transverse dimensions respectively. Right Thyroid Lobe: 5.8 x 2.0 x 1.8 cm, volume 10.9 mL. Parenchyma: The gland echotexture is heterogeneous. Thyroid vascularity is increased. Left Thyroid Lobe: 3.9 x 1.6 x 1.3 cm, volume 4.2 mL. Parenchyma: The gland echotexture is heterogeneous.. Thyroid vascularity is increased. Isthmus: 0.2 cm in maximum AP dimension. Estimated total number of nodules greater than or equal to 1 cm: 1. Checkman nodules are described as follows: 1. Location: Lower pole right thyroid lobe. Size: 2.0 x 1.7 x 1.9 cm, volume 3.3 mL. Nodule characteristics: Composition: Cystic(0). Echogenicity: Anechoic (0). Shape: Not taller than wide (0). Margins: Smooth (0). Echogenic Foci: None (0). ACR TI-RADS total points: 0 ACR TI-RADS category: 1 US/US thyroid IMPRESSION: ACR TI-RADS category: 1 ACR TI-RADS RECOMMENDATION REFERENCE: Ultrasound-guided fine-needle aspiration, followup ultrasound, no further follow up. * TR1 (0 point) and TR2 (2 points): No FNA or follow up. * TR3 (3 points): FNA if more than or equal to 2.5 cm in maximum dimension, followup ultrasound in 1, 3 and 5 years if 1.5 to 2.4 cm in maximum dimension. * TR4 (4-6 points): FNA if more than or equal to 1.5 cm in maximum dimension, followup ultrasound in 1, 2, 3 and 5 years if 1 to 1.4 cm in maximum dimension. * TR5 (more than or equal to 7 points): FNA if more than or equal to 1 cm in maximum dimension, followup ultrasound every year for 5 years if 0.5 to 0.9 cm in maximum dimension. * TR3, TR4 or TR5 nodules that are below the size threshold for followup receive no follow up. Electronically signed by: Ishmael Hurst MD 09/07/2024 02:36 PM EDT
--- OUTSIDE RECORDS SUMMARY | 2024-09-07 13:51 | XMS_ITS | Encounter Summary ---
Author Organization [facility] Address [address] [place] [address] Phone Care Team Providers Care Printed Circuit Boards Plasma Etcher Name Role Phone Ashwin Cannon MD Primary Care Provider Ashwin Cannon MD Unavailable [phone] Cyril Aguilar MD, MPH Unavailable [phone] Encounter Details Date Type Department Care Team (Late st Contact Info) Description 06/30/2024 Hospital Encounter [facility] Supervisor [facility] [address] [place] [address] Vern Rod MD, MPH 75 [facility]-3rd [place] [address] [email or web address] Social History Tobacco Use Types Packs/Day Years [...] st Contact Info) Description 08/22/2024 Procedure Pass [place], [place] [address] [address] 08/22/2024 Procedure Pass Jeanette-[address] [address] 08/28/2025 6:30 AM EDT Blood Draw Laboratory Services, [address] [address] Cyril Aguilar MD, MPH [address] [place] [phone] [email or web address] 08/28/2025 8:10 AM EDT Appointment [address] [address] Cyril Aguilar MD, MPH [address] [place] [phone] [email or web address] 08/28/2025 10:00 AM EDT Office Visit [facility], [address] [address] Cyril Aguilar MD, MPH [address] [place] [phone] [email or web address] documented as of this encounter Visit Diagnoses Not on filedocumented in this encounter Care Teams Printed Circuit Boards Plasma Etcher Relationship Specialty Start Date End Date Ashwin Cannon MD 21 [facility] [address] [place] [address] PCP - General Internal Medicine 06/10/23 Ashwin Cannon MD 21 [facility] [address] [place] [id number] Internal Medicine 06/28/23 Cyril Aguilar MD, MPH [address] [place] [phone] [email or web address] Medical Oncology 06/28/23 documented as of this encounter Additional Source Comments The information contained in this document represents components of the legal health record. It is not the complete legal health record.[facility]
== END 2024-09-07 13:49 | disposition home or self-care (01) ==
LOC: HO.US 13:48
PROVIDERS: PCP Internal Medicine; Visit Provider Internal Medicine
DX: E01.0 Iodine-deficiency related diffuse (endemic) goiter (principal)
CPT/HCPCS: 76536

== ENCOUNTER → 2024-09-07 13:52 | Outpatient (BNV) | payer MEDICARE, SELFPAY | PROVIDERS: PCP Internal Medicine; Visit Provider Radiology Diagnostic Radiology | DX: E04.2 Nontoxic multinodular goiter (principal) | CPT/HCPCS: 76536 ==

== ENCOUNTER → 2024-09-08 23:59 | Outpatient (BNV) | payer MEDICARE, SELFPAY ==
--- NOTE | 2024-10-01 20:55 | A.OFFVIS_ITS ---
Intake Visit Reasons: Remote device check- [facility] Allergies No Known Allergies Allergy (Verified 09/05/24 14:15) [facility], [facility] Medical History (Updated 09/05/24 @ 15:12 by Perfecto Marie MD) Thyroid adenoma Thyromegaly Pulmonary nodules Asthma with COPD Colon cancer Cardiac pacemaker in situ HTN (hypertension) Second degree AV block Surgical History Hx of colonoscopy Status post placement of cardiac pacemaker Hx of eye surgery Hx of prostatectomy Family History Father No problems noted. Mother Diabetes Social History Household Members: Family Housing: House Are you a primary career and technology education teacher to a significant other at home: No Do you presently have visiting nurse or other home services: No Comment: sss prior to icu Patient Tobacco Use Status: Never used Tobacco Second Hand Smoke Exposure: No service: No Current occupational status: unemployed Office Procedures Cardiac Device Check Cardiac Device Check Details: PPM SUPERVISOR PAINTING >99% Battery >5 years No new alerts. [id number] Cardiac Device Interrogation, pacemaker Procedure code (CPT) selection complete Assessment & Plan Assessment & Plan (1) Cardiac pacemaker in situ: Code(s): Z95.0 - Presence of cardiac pacemaker Category: Medical Plan Coding Level of Care Code Procedure Only Diagnoses Cardiac pacemaker in situ Z95.0 CPT Codes Cardiac Device Check - Cardiac Device 12: [id number] Cardiac Device Interro gation, pacemaker ([id number])
== END ==
PROVIDERS: PCP Internal Medicine; Visit Provider Internal Medicine Cardiovascular Disease
DX: Z45.018 Encounter for adjustment and management of other part of cardiac pacemaker (principal)
CPT/HCPCS: 93294

== ENCOUNTER → 2024-12-08 23:59 | Outpatient (BNV) | payer MEDICARE, SELFPAY ==
--- NOTE | 2024-12-17 21:11 | MHC.OFFVIS ---
Intake Visit Reasons: Remote device check- [facility] Allergies No Known Allergies Allergy (Verified 09/05/24 14:15) [facility] Medical History (Updated 09/05/24 @ 15:12 by Perfecto Marie MD) Thyroid adenoma Thyromegaly Pulmonary nodules Asthma with COPD Colon cancer Cardiac pacemaker in situ HTN (hypertension) Second degree AV block Surgical History Hx of colonoscopy Status post placement of cardiac pacemaker Hx of eye surgery Hx of prostatectomy Family History Father No problems noted. Mother Diabetes Social History Household Members: Family Housing: House Are you a primary care professional to a significant other at home: No Do you presently have visiting nurse or other home services: No Comment: sss prior to icu Patient Tobacco Use Status: Never used Tobacco Second Hand Smoke Exposure: No service: No Current occupational status: unemployed Office Procedures Cardiac Device Check Cardiac Device Check Details: PPM Battery ok MANAGER [employer] 98% No new alerts. [id number] Cardiac Device Interrogation, pacemaker Procedure code (CPT) selection complete Assessment & Plan Assessment & Plan (1) Cardiac pacemaker in situ: Code(s): Z95.0 - Presence of cardiac pacemaker Category: Medical Plan: Coding Level of Care Code Procedure Only Diagnoses Cardiac pacemaker in situ Z95.0 CPT Codes Cardiac Device Check - Cardiac Device 12: [id number] Cardiac Device Interrogation, pacemaker ([id number])
== END ==
PROVIDERS: PCP Internal Medicine; Visit Provider Internal Medicine Cardiovascular Disease
DX: Z45.018 Encounter for adjustment and management of other part of cardiac pacemaker (principal)
CPT/HCPCS: 93294

== ENCOUNTER → 2025-01-24 10:10 | Outpatient (BNV) | payer MEDICARE, SELFPAY | PROVIDERS: PCP Internal Medicine; Visit Provider Internal Medicine Cardiovascular Disease | DX: Z45.018 Encounter for adjustment and management of other part of cardiac pacemaker (principal) | CPT/HCPCS: 93294 ==